=== PATIENT | male | born 1930 | race Caucasian/White ===

== ENCOUNTER → 2016-07-21 | Outpatient (CLI) | payer OTHER ==
[~2016-07-21] MED LIST: ASPI81TA25 PO; CZR50 PO; LPT40 PO; METO50TA7 PO; SPIR50TA2 PO
[2016-07-21 12:19] LABS: BASO % 0.3 %; BASO ABS # 0.02 K/uL (0-0.2); COMPLETE YES; EOS % 6.9 %; HEMATOCRIT 38.1 % (42-52); IG% 0.3 %; LYMPH % 22.5 %; LYMPH ABS # 1.64 K/uL (1.2-3.4); MEAN CELL VOLUME 96.7 fL (80-100); MEAN CORPUSCULAR HEMOGLOBIN 32.2 pg (25-34); MEAN CORPUSCULAR HGB CONC 33.3 g/dl (32-36); MEAN PLATELET VOLUME 10.2 fL (7.4-10.4); MONO % 9.3 %; NEUT % 60.7 %; PLATELET COUNT 151 K/uL (130-400); RED BLOOD COUNT 3.94 M/uL (4.7-6.1); WHITE BLOOD COUNT 7.28 K/uL (4.8-10.8)
[2016-07-21 12:28] LABS: BLOOD UREA NITROGEN 29 mg/dl (7-18); BUN/CREATININE RATIO 20.4 (10-20); CALCIUM 9.4 mg/dl (8.5-10.1); CARBON DIOXIDE 29 mmol/L (21-32); CHLORIDE 106 mmol/L (98-107); GLUCOSE 92 mg/dl (70-99); POTASSIUM 5.1 mmol/L (3.5-5.1); SODIUM 139 mmol/L (136-145)
[2016-07-21 12:46] LABS: ESTIMATED AVERAGE GLUCOSE 131 mg/dl; HA1C FLAG Normal (Normal)
== END | disposition home or self-care (01) ==
LOC: C.LABBFT 10:08
PROVIDERS: ATTEND Internal Medicine
DX: D64.9 Anemia, unspecified (principal); R73.01 Impaired fasting glucose

== ENCOUNTER → 2016-08-17 | Outpatient (CLI) | payer OTHER ==
[2016-08-17 13:07] LABS: BLOOD UREA NITROGEN 40 mg/dl (7-18); BUN/CREATININE RATIO 23.8 (10-20)
[2016-08-17 13:11] LABS: PROSTATE SPECIFIC ANTIGEN 0.157 ng/ml (0.000-4.000)
--- NOTE | 2016-08-24 12:19 | CODING QUERY MEDICAL NECESSITY ---
CQSUPPORTING DIAGNOSIS NEEDED A supporting diagnosis is required for the test/procedure performed on this patient in order for us to be reimbursed by the patient's insurance. Please provide a supporting diagnosis for the following test/procedure listed below next to the test name along with your signature. *If there is no additional diagnosis for this patient that would support the following test/procedure please document that below next to the test/procedure. Test(s)/Procedure(s) that require a supporting diagnosis: DOS 08/17/16 [facility] TEST Provider Signature: Date: Thank you Carolann Sadler Health Information Management Once completed, please kindly fax back to [phone] For questions please call [phone]
== END | disposition home or self-care (01) ==
LOC: C.LABBFT 07:35
PROVIDERS: ATTEND Urology
DX: N39.0 Urinary tract infection, site not specified (principal); C61 Malignant neoplasm of prostate

== ENCOUNTER → 2017-01-28 | Outpatient (CLI) | payer OTHER ==
[2017-01-28 12:21] LABS: BASO % 0.3 %; BASO ABS # 0.02 K/uL (0-0.2); COMPLETE YES; EOS % 7.6 %; HEMATOCRIT 37.3 % (42-52); IG% 0.1 %; LYMPH % 24.9 %; LYMPH ABS # 1.66 K/uL (1.2-3.4); MEAN CELL VOLUME 98.4 fL (80-100); MEAN CORPUSCULAR HEMOGLOBIN 32.2 pg (25-34); MEAN CORPUSCULAR HGB CONC 32.7 g/dl (32-36); MEAN PLATELET VOLUME 10.2 fL (7.4-10.4); MONO % 10.9 %; NEUT % 56.2 %; PLATELET COUNT 149 K/uL (130-400); RED BLOOD COUNT 3.79 M/uL (4.7-6.1); WHITE BLOOD COUNT 6.67 K/uL (4.8-10.8)
[2017-01-28 12:32] LABS: ALT/SGPT 16 U/L (12-78); AST/SGOT 25 U/L (15-37); BLOOD UREA NITROGEN 39 mg/dl (7-18); BUN/CREATININE RATIO 27.5 (10-20); CALCIUM 8.9 mg/dl (8.5-10.1); CARBON DIOXIDE 26 mmol/L (21-32); CHLORIDE 111 mmol/L (98-107); CHOLESTEROL 141 mg/dl (0-200); GLUCOSE 100 mg/dl (70-99); POTASSIUM 4.5 mmol/L (3.5-5.1); SODIUM 142 mmol/L (136-145); TRIGLYCERIDES 75 mg/dl (0-150); VERY LOW DENSITY LIPOPROT CALC 15 mg/dl
[2017-01-28 12:33] LABS: ALKALINE PHOSPHATASE 77 U/L (45-117); CHOLESTEROL/HDL RATIO 2.9; HDL CHOLESTEROL 48 mg/dl; LDL CHOLESTEROL CALCULATED 78 mg/dl
[2017-01-28 12:43] LABS: ESTIMATED AVERAGE GLUCOSE 131 mg/dl; HA1C FLAG Normal (Normal)
== END | disposition home or self-care (01) ==
LOC: C.LABBFT 07:43
PROVIDERS: ATTEND Internal Medicine
DX: N18.3 Chronic kidney disease, stage 3 (moderate) (principal); R73.01 Impaired fasting glucose; E78.5 Hyperlipidemia, unspecified

== ENCOUNTER → 2017-07-26 | Outpatient (CLI) | payer OTHER ==
[~2017-07-26] MED LIST changes: -METO50TA7 PO; +METO50TA8 PO
[2017-07-26 12:29] LABS: BASO % 0.4 %; BASO ABS # 0.03 K/uL (0-0.2); EOS % 6.8 %; EOS ABS # 0.48 K/uL (0-0.5); HEMATOCRIT 38.4 % (42-52); HEMOGLOBIN 12.7 g/dL (14.0-18.0); IG# 0.01 K/uL (0.00-0.02); LYMPH % 23.3 %; LYMPH ABS # 1.65 K/uL (1.2-3.4); MEAN CELL VOLUME 95.3 fL (80-100); MEAN CORPUSCULAR HEMOGLOBIN 31.5 pg (25-34); MEAN CORPUSCULAR HGB CONC 33.1 g/dl (32-36); MEAN PLATELET VOLUME 9.6 fL (7.4-10.4); MONO % 9.7 %; MONO ABS # 0.69 K/uL (0.11-0.59); NEUT % 59.7 %; NEUT ABS # 4.23 K/uL (1.4-6.5); PLATELET COUNT 149 K/uL (130-400); RED CELL DISTRIBUTION WIDTH CV 12.9 % (11.5-14.5); RED CELL DISTRIBUTION WIDTH SD 45.1 fL (36.4-46.3); WHITE BLOOD COUNT 7.09 K/uL (4.8-10.8)
[2017-07-26 12:41] LABS: ALBUMIN 3.6 gm/dl (3.4-5.0); BLOOD UREA NITROGEN 28 mg/dl (7-18); CALCIUM 9.2 mg/dl (8.5-10.1); CARBON DIOXIDE 27 mmol/L (21-32); GLUCOSE 94 mg/dl (70-99); POTASSIUM 4.5 mmol/L (3.5-5.1); SODIUM 139 mmol/L (136-145)
[2017-07-26 12:45] LABS: PHOSPHORUS 3.5 mg/dl (2.5-4.9)
[2017-07-26 12:46] LABS: HEMOGLOBIN A1C 6.5 % (4.5-5.6)
== END | disposition home or self-care (01) ==
LOC: C.LABBFT 09:19
PROVIDERS: ATTEND Internal Medicine
DX: N18.3 Chronic kidney disease, stage 3 (moderate) (principal); D64.9 Anemia, unspecified; R73.01 Impaired fasting glucose; E55.9 Vitamin D deficiency, unspecified; C67.9 Malignant neoplasm of bladder, unspecified; C61 Malignant neoplasm of prostate

== ENCOUNTER 2019-08-09 06:10 | Inpatient (IN) ==
[2019-08-09] MEDS ORDERED: SODIUM CHLORIDE 0.9% 500 ML IV SCH (06:45)
[2019-08-09 06:55] LABS: Hematocrit (blood only) 33.9 % (42-52); Hemoglobin 11.4 g/dL (14.0-18.0); Mean Corpuscular Hemoglobin 31.8 pg (25-34); Mean Corpuscular Hgb Conc 33.6 g/dL (32-36); Mean Corpuscular Volume 94.4 fL (80-100); Mean Platelet Volume 9.1 fL (7.4-10.4); Platelet Count 168 K/uL (130-400); RDW Coefficient of Variation 13.2 % (11.5-14.5); RDW Standard Deviation 45.9 fL (36.4-46.3); Red Blood Count 3.59 M/uL (4.7-6.1); White Blood Count 6.92 K/uL (4.8-10.8)
[2019-08-09 07:06] LABS: Albumin Level 2.5 gm/dl (3.4-5.0); Calcium 8.6 mg/dl (8.5-10.1); Creatinine Clr Calc Pharmacy 28.3 ml/min; Est GFR (African American) 45.7; Est GFR (Non-African American) 39.4; Potassium 4.2 mmol/L (3.5-5.1)
[2019-08-09 07:17] LABS: Albumin Globulin Ratio 0.6 (0.9-2); Bilirubin,Total 0.5 mg/dl (0.2-1); Globulin 4.5 gm/dl (2.5-4.0); Thyroid Stimulating Hormone 1.67 uIu/ml (0.300-4.500); Troponin I 0.04 ng/ml (0-0.045)
--- NOTE | 2019-08-09 07:19 | Emergency Department Note ---
History of Present Illness General Chief Complaint: Shortness of Breath/Dyspnea Stated Complaint: SHORT OF BREATH Time Seen by Provider: 08/09/19 06:34 Source: patient Mode of arrival: EMS Limitations: no limitations History of Present Illness Provider Complaint: shortness of breath Onset (ago): day(s) (Several) Severity: mild Consistency/Duration: + constant Current Pain Intensity: 0 Relieved By: + nothing Exacerbated By: + exertion Context: + recent illness Associated symptoms: + other (Generalized weakness.) Treatment prior to arrival: oxygen HPI Narrative: The patient presents from [facility] with a chief complaint of exertional dyspnea and exertional shortness of breath. He has been at [facility] for the past couple of days for generalized weakness. They found him to be hypoxic on 2 L of oxygen this morning at 82%. The patient was found to be 86% here on room air. He was not using oxygen prior to going to [facility]. The patient states that he has been feeling rundown for a couple of months with no energy. He states that he can only walk for a few steps until he feels fatigued and tired. Related Data Home oxygen amount: none Home Medications Home Medications Medication Instructions Recorded Confirmed Type aspirin 81 mg tablet,delayed 81 mg PO DAILY 04/24/19 08/09/19 History release nitroglycerin 0.4 mg sublingual 0.4 mg SL Q5M PRN #25 tab 05/15/19 08/09/19 Rx tablet atorvastatin 40 mg tablet 40 mg PO DAILY #90 tab 07/25/19 08/09/19 Rx losartan 50 mg tablet 50 mg PO DAILY #90 tab 07/25/19 08/09/19 Rx metoprolol tartrate 50 mg tablet 50 mg PO BID #180 tab 07/25/19 08/09/19 Rx acetaminophen 650 mg PO Q4H PRN 08/09/19 08/09/19 History bisacodyl 10 mg NJ DAILY PRN 08/09/19 08/09/19 History docusate sodium 100 mg PO DAILY 08/09/19 08/09/19 History hydrochlorothiazide 25 mg PO 2XWK 08/09/19 08/09/19 History polyethylene glycol 3350 [Miralax] 17 g PO DAILY PRN 08/09/19 08/09/19 History sennosides-docusate sodium 1 tab-cap PO HS PRN 08/09/19 08/09/19 History [Senokot-S] sodium phosphates 133 ml NJ DAILY PRN 08/09/19 08/09/19 History spironolactone [Aldactone] 25 mg PO 2XWK 08/09/19 08/09/19 History Allergies Allergy/AdvReac Type Severity Reaction Status Date / Time No Known Drug Allergies Allergy Verified 08/04/19 10:35 Past Med/Surg History Medical History Antiplatelet or antithrombotic long-term use CAD (coronary artery disease) Dyslipidemia Surgical History S/P arthroscopy of right knee S/P cholecystectomy S/P cystoscopy Family History Other Heart disease Social History Preferred Language: [place] Communication Ability: Effective Hot Cell Technician Required: No Beliefs That Will Affect Care: None marital status: / Current Living Situation: Rehab current occupational status: retired Other Information That Helps Us Care for You: No Feels Safe at Home: Yes Safety Concerns: Feels Safe At This Time Smoking Status: Former smoker Tobacco Type: cigarettes ; Age Started Using Tobacco: 16 ; Age Quit Using Tobacco: 68 ; packs per day: 1.5 ; Cigarettes Per Day: 30 ; Do You Dip or Chew Tobacco: No ; Smoking End Date: 1995 ; Number of Years Since Quit: 20 ; Second Hand Exposure: No ; Tobacco Cessation Education Requested by Patient: No Hx Alcohol Use: No Hx Substance Use: No Review of Systems A total of 10 systems reviewed and were otherwise negative Physical Exam Vital Signs: Vital Signs - 24 hr 08/09/19 06:39 08/09/19 07:00 08/09/19 08:30 Temperature 36.8 C Temperature Source Oral Pulse Rate 74 Pulse Rate [Apical ] 85 88 Pulse Rhythm [Apic al] Regular Regular Pulse Strength [Ap ical] Normal Normal Respiratory Rate 24 20 20 Respiratory Effort / Characteristics Non-Labored Sponta neous Non-Labored Sponta neous Non-Labored Sponta neous Respiratory Depth Normal Normal Normal Respiratory Patter n Regular Regular Regular Blood Pressure 105/76 Blood Pressure [Le ft Arm] 113/86 116/61 Blood Pressure Jessica n 85 Blood Pressure Jessica n [Left Arm] 95 79 Blood Pressure Pos ition [Left Arm] Lying Sitting Pulse Oximetry 87 L 96 93 Oxygen Delivery Me thod Room Air Nasal Cannula Oxymask Oxygen Flow Rate 4 6 Sepsis Recent Feve r Within 48 Hours Yes Sepsis New/Unexpla ined Change in Men dank Status No Sepsis Action Take n by Nursing Physician Notified Oxygen Flow Rate - Titration 4 Pulse Oximetry Pos t Tiitration 95 08/09/19 09:30 Temperature Temperature Source Pulse Rate Pulse Rate [Apical ] 78 Pulse Rhythm [Apic al] Regular Pulse Strength [Ap ical] Normal Respiratory Rate 20 Respiratory Effort / Characteristics Non-Labored Sponta neous Respiratory Depth Normal Respiratory Patter n Regular Blood Pressure Blood Pressure [Le ft Arm] 100/63 Blood Pressure Jessica n Blood Pressure Jessica n [Left Arm] 75 Blood Pressure Pos ition [Left Arm] Sitting Pulse Oximetry 95 Oxygen Delivery Me thod Oxymask Oxygen Flow Rate 5 Sepsis Recent Feve r Within 48 Hours Sepsis New/Unexpla ined Change in Men dank Status Sepsis Action Take n by Nursing Oxygen Flow Rate - Titration Pulse Oximetry Pos t Tiitration Physical Exam: CONSTITUTIONAL/VITAL SIGNS: Reviewed / noted above. GENERAL: Non-toxic in appearance. INTEGUMENTARY: Warm, dry, and [place]. HEAD: Normocephalic. EYES: without scleral icterus or trauma. ENT/OROPHARYNX: clear and moist. LYMPHADENOPATHY/NECK: Is supple without lymphadenopathy or meningismus. RESPIRATORY: Lungs clear and equal. CARDIOVASCULAR: Regular rate and rhythm. GI/ABDOMEN: Soft and nontender. No organomegaly or pulsatile mass. No rebound or guarding. Normal bowel sounds. EXTREMITIES: Warm and well perfused. BACK: No CVA tenderness. NEUROLOGICAL: Intact without focal deficits. PSYCHIATRIC: normal affect. MUSCULOSKELETAL: Normally developed with good muscle tone. TRIAGE NURSING DOCUMENTATION REVIEWED. Course Administered Medications Ioversol (Optiray 320 125ml) 76 ml IV ONCE PRN PRN Reason: Interaction Checking Stop: 08/13/19 07:43 Last Admin: 08/09/19 07:44 Dose: 76 ml Documented by: [id number] Discontinued Medications Sodium Chloride (Nss) 500 mls @ 999 mls/hr IV .Q31M HUMA Stop: 08/09/19 07:15 Last Admin: 08/09/19 07:00 Dose: 999 mls/hr Documented by: [id number] Cefepime HCl (Maxipime) 2,000 mg in 20 mls @ 5 mls/min IV NOW STA; Protocol Stop: 08/09/19 07:54 Last Admin: 08/09/19 08:33 Dose: 5 mls/min Documented by: [id number] Medical Decision Making Differential Diagnosis Differential includes acute coronary syndrome, myocardial infarction, CVA, TIA, anemia, infection, pneumonia, UTI, pyelonephritis, poor nutrition, dehydration, electrolyte disturbance,hypoglycemia. Medical Records Attestation: I reviewed the patient's medical records. Laboratory Data Attestation: I reviewed the patient's lab results. Result diagrams: 08/09/19 06:30 08/09/19 06:30 Lab Results 08/09/19 08/09/19 Range/Units 06:30 06:30 WBC 6.92 (4.8-10.8) K/uL RBC 3.59 L (4.7-6.1) M/uL Hgb 11.4 L (14.0-18.0) g/dL Hct 33.9 L (42-52) % MCV 94.4 (80-100) fL MCH 31.8 (25-34) pg MCHC 33.6 (32-36) g/dL RDW Std Deviation 45.9 (36.4-46.3) fL RDW Coeff of Shira 13.2 (11.5-14.5) % Plt Count 168 (130-400) K/uL MPV 9.1 (7.4-10.4) fL Immature Gran % (Auto) 0.6 % Neut % (Auto) 74.8 % Lymph % (Auto) 17.8 % [place] % (Auto) 6.4 % Eos % (Auto) 0.4 % Baso % (Auto) 0.0 % Immature Gran # (Auto) 0.04 H (0.00-0.02) K/uL Neut # (Auto) 5.18 (1.4-6.5) K/uL Lymph # (Auto) 1.23 (1.2-3.4) K/uL [place] # (Auto) 0.44 (0.11-0.59) K/uL Eos # (Auto) 0.03 (0-0.5) K/uL Baso # (Auto) 0.00 (0-0.2) K/uL Sodium 137 (136-145) mmol/L Potassium 4.2 (3.5-5.1) mmol/L Chloride 107 (98-107) mmol/L Carbon Dioxide 25 (21-32) mmol/L Anion Gap 5.0 (3-11) BUN 40 H (7-18) mg/dl Creatinine 1.54 H (0.6-1.4) mg/dl Est Cr Clr Drug Dosing 28.3 ml/min Est GFR ( Amer) 45.7 Est GFR (Non-Af Amer) 39.4 BUN/Creatinine Ratio 26.0 H (10-20) Glucose 98 (70-99) mg/dl Calcium 8.6 (8.5-10.1) mg/dl Total Bilirubin 0.5 (0.2-1) mg/dl AST 189 H (15-37) U/L ALT 82 H (12-78) U/L Alkaline Phosphatase 68 (45-117) U/L Total Creatine Kinase 218 (39-308) U/L Troponin I 0.040 (0-0.045) ng/ml Total Protein 7.0 (6.4-8.2) gm/dl Albumin 2.5 L (3.4-5.0) gm/dl Globulin 4.5 H (2.5-4.0) gm/dl Albumin/Globulin Ratio 0.6 L (0.9-2) TSH 1.670 (0.300-4.500) uIu/ml Imaging Data Radiologist's Impression: T ANGIOGRAPHY OF THE CHEST, PULMONARY EMBOLUS PROTOCOL CLINICAL HISTORY: Shortness of breath. COMPARISON STUDY: Chest CT June 06, 2015. Chest radiograph performed earlier today. TECHNIQUE: Following IV administration of 76 mL of Optiray-320, helical axial images of the chest were obtained utilizing the pulmonary embolus protocol. Maximal intensity projections and sagittal and coronal reformats were viewed on an independent 3D workstation. IV contrast was administered without complication. Automated exposure control was utilized for the study. A dose lowering technique was utilized adhering to the principles of ALARA. CT DOSE: 354.16 mGy.cm FINDINGS: No pulmonary emboli are identified. There is mild cardiomegaly. No pericardial effusion is noted. Extensive coronary artery calcification is noted. 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 There is no pneumothorax or pleural effusion. Moderate emphysema is present. Moderate bilateral groundglass opacities are noted, predominantly subpleural in the location. There is no cavitation. Calcified granuloma within the right upper lobe is incidentally noted. A prominent subcarinal lymph node is noted. This is probably benign. Bony thorax and upper abdomen are unremarkable. IMPRESSION: 1. No pulmonary emboli identified. 2. Moderate bilateral groundglass opacities within the lungs, predominantly subpleural in location. These favor a nonspecific infectious/inflammatory process. 3. Emphysema. XR chest 1V portable CLINICAL HISTORY: weakness COMPARISON STUDY: Chest radiograph August 04, 2019. FINDINGS: Incidental note is made of a calcified granuloma within the right upper lobe. There is no pneumothorax or pleural effusion. Lung volumes are mildly diminished. Emphysema is present. Linear bilateral opacities favor atelectasis. There is mild interstitial thickening within the lungs. No lobar consolidation is present. Cardiomediastinal silhouette is stable. IMPRESSION: 1. Interval development of interstitial thickening which may reflect an infectio us process or pulmonary edema. 2. Linear bilateral opacities suggestive of atelectasis. 3. Emphysema. ECG Data Attestation: I personally reviewed and interpreted this ECG as follows: (Per my interpretation there is a normal sinus rhythm at a rate of 73. No ST elevations. No PVCs.) Blood Pressure Blood Pressure Findings: Normal blood pressure MDM Narrative Patient presents with feeling "rundown" for a couple of months and more recently shortness of breath and weakness with exertion. He was found to be hypoxic on 2 L of oxygen at [facility]. His pulse ox was 82% on 2 L. They sent him here for this. He was 86 to 87% on room air here. He was not using oxygen until he went to [facility] couple of days ago. He was sent there for his generalized weakness. He is currently not taking antibiotics. He denies any recent illness. His physical exam was unremarkable. He is in no distress. His lungs were clear. The patient CBC is normal, BUN is 40 and creatinine is 1.54. This is similar to what he was last time. AST is 189, ALT is 82. EKG showed a normal sinus rhythm at a rate of 73 with a normal troponin. TSH was normal. The patient was treated with normal saline 500 cc IV. He is requiring nasal cannula oxygen to maintain sats in the high 80s to low 90s. He was empirically given IV cefepime as a CT scan of the chest suggestive of bilateral pneumonia. Of note, the patient's son called this morning while the patient was in the ED and stated that he (THE SON) just got a phone call this morning stating that he was positive for Covid19. He states that he was living with his dad until he went to [facility] a few days ago. I did speak with the hospitalist, who will see the patient for further inpatient evaluation and care. Covid19 testing was initiated. I did wear and 95 mask and closed with this patient with no additional PPE. Impression & Plan Hypoxia, Weakness Discharge Plan Visit Data Chief Complaint: Shortness of Breath/Dyspnea Stated Complaint: SHORT OF BREATH ED Provider: Tavares Grier Discharge Problem: Hypoxia, Weakness Forms Stand Alone Forms: My [facility] Prescriptions Prescriptions: No Action nitroglycerin 0.4 mg tablet, sublingual 0.4 mg SL Q5M PRN (Reason: chest pain) Qty: 25 RF: 1 aspirin 81 mg tablet,delayed release (DR/EC) 81 mg PO DAILY RF: 0 atorvastatin 40 mg tablet 40 mg PO DAILY Qty: 90 RF: 3 losartan 50 mg tablet 50 mg PO DAILY Qty: 90 RF: 3 metoprolol tartrate 50 mg tablet 50 mg PO BID Qty: 180 RF: 3 docusate sodium 100 mg Capsule 100 mg PO DAILY RF: 0 hydrochlorothiazide 25 mg Tablet 25 mg PO 2XWK RF: 0 spironolactone [Aldactone] 25 mg Tablet 25 mg PO 2XWK RF: 0 acetaminophen 650 mg Tablet Extended Release 650 mg PO Q4H PRN (Reason: pain/fever) RF: 0 bisacodyl 10 mg Suppository 10 mg NJ DAILY PRN (Reason: Constipation) RF: 0 sennosides-docusate sodium [Senokot-S] 8.6-50 mg Tablet 1 tab-cap PO HS PRN (Reason: Constipation) RF: 0 polyethylene glycol 3350 [Miralax] 17 gram Powder In Packet 17 g PO DAILY PRN (Reason: Constipation) RF: 0 sodium phosphates 19-7 gram/118 mL Enema 133 ml NJ DAILY PRN (Reason: Constipation) RF: 0
[2019-08-09 07:21] LABS: Eosinophils # (auto) 0.03 K/uL (0-0.5); Eosinophils % (auto) 0.4 %; Immature Granulocytes # (auto) 0.04 K/uL (0.00-0.02); Immature Granulocytes % (auto) 0.6 %; Lymphocytes # (auto) 1.23 K/uL (1.2-3.4); Lymphocytes % (auto) 17.8 %; Monocytes # (auto) 0.44 K/uL (0.11-0.59); Monocytes % (auto) 6.4 %; Neutrophils # (auto) 5.18 K/uL (1.4-6.5); Neutrophils % (auto) 74.8 %
[2019-08-09] MEDS ORDERED: OPTIRAY 320 125ml IV PRN (07:44)
--- NOTE | 2019-08-09 07:44 | XRay Report ---
XR chest 1V portable CLINICAL HISTORY: weakness COMPARISON STUDY: Chest radiograph August 04, 2019. FINDINGS: Incidental note is made of a calcified granuloma within the right upper lobe. There is no p neumothorax or pleural effusion. Lung volumes are mildly diminished. Emphysema is present. Linear patito ateral opacities favor atelectasis. There is mild interstitial thickening within the lungs. No lobar consolidation is present. Cardiomediastinal silhouette is stable. IMPRESSION: 1. Interval development of interstitial thickening which may reflect an infectious process or pulmona ry edema. 2. Linear bilateral opacities suggestive of atelectasis. 3. Emphysema. ACT 112: Negative or not required by law. Electronically signed by: Sam Farris M.D. 08/09/2019 7:43 AM
[2019-08-09] MEDS ORDERED: CEFEPIME 2,000 MG/20 ML VIAL IV STA (07:51)
--- NOTE | 2019-08-09 08:06 | CT Scan Report ---
CT ANGIOGRAPHY OF THE CHEST, PULMONARY EMBOLUS PROTOCOL CLINICAL HISTORY: Shortness of breath. COMPARISON STUDY: Chest CT June 06, 2015. Chest radiograph performed earlier today. TECHNIQUE: Following IV administration of 76 mL of Optiray-320, helical axial images of the chest wer e obtained utilizing the pulmonary embolus protocol. Maximal intensity projections and sagittal and coronal reformats were viewed on an independent 3D workstation. IV contrast was administered without complication. Automated exposure control was utilized for the study. A dose lowering technique was utilized adhering to the principles of ALARA. CT DOSE: 354.16 mGy.cm FINDINGS: No pulmonary emboli are identified. There is mild cardiomegaly. No pericardial effusion is noted. Extensive coronary artery calcification is noted. 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 Ther e is no pneumothorax or pleural effusion. Moderate emphysema is present. Moderate bilateral groundgla ss opacities are noted, predominantly subpleural in the location. There is no cavitation. Calcified g ranuloma within the right upper lobe is incidentally noted. A prominent subcarinal lymph node is note d. This is probably benign. Bony thorax and upper abdomen are unremarkable. IMPRESSION: 1. No pulmonary emboli identified. 2. Moderate bilateral groundglass opacities within the lungs, predominantly subpleural in location. T hese favor a nonspecific infectious/inflammatory process. 3. Emphysema. ACT 112: Negative or not required by law. Electronically signed by: Sam Farris M.D. 08/09/2019 8:04 AM
[2019-08-09 10:38] LABS: Influenza A virus by PCR Neg for Influ A (Neg); Influenza B virus by PCR Neg for Influ B (Neg)
[2019-08-09] MEDS ORDERED: ACETAMINOPHEN 325 MG TAB PO PRN (11:01)
[2019-08-09] MEDS: SODIUM CHLORIDE 0.9% 1000ML 1,000 ML IV SCH ×2 (11:17→21:59)
[2019-08-09] MEDS: cefTRIAXone SODIUM 1,000 MG in DEXTROSE 5% 50 ML IV SCH (12:35)
--- NOTE | 2019-08-09 12:42 | History & Physical Report ---
Date of Service August 09, 2019 Assessment & Plan (1) Bilateral pneumonia: CT chest with bilateral ground glass opacities suggestive of inflammatory/infectious changes influenza negative, biofire negative COVID 19 sent, place in airborn precautions, negative pressure room NSS at 80cc/hr repeat labs this afternoon for CBC, CMP, LDH, lactic acid, D dimer will cover for possible bacterial infection with Rocephin and Doxycycline (2) Acute respiratory failure with hypoxia: due to pneumonia discussed with him frankly that if this is in fact COVID 19 then there is not much to be done if his respiratory status declines he would not want to be intubated discussed this with him twice as well as his son over the phone, his son agrees with this up to 11L via mask on the floor hopeful that he will not deteriorate further but prognosis is very guarded at this time (3) Dehydration: NSS at 80cc/hr likely stop fluids tomorrow as we do not want to over hydrate his PO intake has been suboptimal (4) Weakness: was at [facility] weakness likely due to infection will hold on PT/OT until we know status of COVID testing (5) Chronic kidney disease, stage 3: Cr appears to be at baseline at 1.5 will repeat tomorrow (6) Type 2 diabetes mellitus without complication: Novolog SS (7) CAD (coronary artery disease): (8) Dyslipidemia: Admission and Anticipated Discharge Date Admission Date: August 09, 2019 History of Present Illness Chief Complaint: I was short of breath Primary Care Provider: Lb Scott MD 89 yo male from [facility] who was sent because he found to be hypoxic this morning in the mid 's on room air. The patient went to [facility] several days ago due to weakness. He was evaluated in the ED at that time and there was no obvious source of infection. He was accepted to [facility]. This morning he was hypoxic, felt short of breath, had a non-productive cough. He has not been eating well or drinking well the past few days. In the ED he was afebrile, he was 87% on room air. Influenza negative, biofire negative. CT of the chest showed bilateral ground glass opacities favoring inflammatory/infectious etiology. The patient's son called into the ED while he was being evaluated to state that he had just received news that he tested positive for COVID 19. The patient lives with his son. I called the son to discuss his situation. He has been sick at home with fever, cough for the past 2-3 weeks. He had no travel and no known exposure history. 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 Since the patient has been living with a confirmed COVID case, testing for COVID was sent from the ED. He was admitted to negative pressure room. Discussed situation with patient and his son. The patient said that if he gets worse he would not want to be intubated. Allergies Allergy/AdvReac Type Severity Reaction Status Date / Time No Known Drug Allergies Allergy Verified 08/04/19 10:35 Home Medications Home Medications Medication Instructions Recorded Confirmed Type aspirin 81 mg tablet,delayed 81 mg PO DAILY 04/24/19 08/09/19 History release nitroglycerin 0.4 mg sublingual 0.4 mg SL Q5M PRN #25 tab 05/15/19 08/09/19 Rx tablet atorvastatin 40 mg tablet 40 mg PO DAILY #90 tab 07/25/19 08/09/19 Rx losartan 50 mg tablet 50 mg PO DAILY #90 tab 07/25/19 08/09/19 Rx metoprolol tartrate 50 mg tablet 50 mg PO BID #180 tab 07/25/19 08/09/19 Rx acetaminophen 650 mg PO Q4H PRN 08/09/19 08/09/19 History bisacodyl 10 mg ND DAILY PRN 08/09/19 08/09/19 History docusate sodium 100 mg PO DAILY 08/09/19 08/09/19 History hydrochlorothiazide 25 mg PO 2XWK 08/09/19 08/09/19 History polyethylene glycol 3350 [Miralax] 17 g PO DAILY PRN 08/09/19 08/09/19 History sennosides-docusate sodium 1 tab-cap PO HS PRN 08/09/19 08/09/19 History [Senokot-S] sodium phosphates 133 ml ND DAILY PRN 08/09/19 08/09/19 History spironolactone [Aldactone] 25 mg PO 2XWK 08/09/19 08/09/19 History Past Med/Surg History Medical History Antiplatelet or antithrombotic long-term use CAD (coronary artery disease) Dyslipidemia Surgical History S/P arthroscopy of right knee S/P cholecystectomy S/P cystoscopy Family History Other Heart disease Social History Preferred Language: Frisian Communication Ability: Effective Dredge Operator Required: No Beliefs That Will Affect Care: None marital status: / Current Living Situation: Rehab current occupational status: retired Other Information That Helps Us Care for You: No Feels Safe at Home: Yes Safety Concerns: Feels Safe At This Time Smoking Status: Former smoker Tobacco Type: cigarettes ; Age Started Using Tobacco: 16 ; Age Quit Using Tobacco: 68 ; packs per day: 1.5 ; Cigarettes Per Day: 30 ; Do You Dip or Chew Tobacco: No ; Smoking End Date: 1995 ; Number of Years Since Quit: 20 ; Second Hand Exposure: No ; Tobacco Cessation Education Requested by Patient: No Hx Alcohol Use: No Hx Substance Use: No Review of Systems Review of Systems: All systems reviewed & are unremarkable except as noted in HPI & below Constitutional: + chills, + fatigue and + weakness; no fever and no sweats Respiratory: + cough, + dyspnea and + dyspnea on exertion; no sputum production Cardiovascular: no chest pain, no palpitations and no edema Gastrointestinal: no abdominal pain, no nausea, no vomiting, no constipation and no diarrhea/loose stools Genitourinary: no dysuria, no difficulty urinating and no urinary frequency Physical Exam Constitutional: WD/WN, vitals as above + in distress (mild) Eyes: PERRL, conjunctivae normal, anicteric sclerae ENMT: external ear and nose normal, oropharynx normal (dry oral membranes) Neck: trachea midline, no thyromegaly Respiratory: + respiratory distress and + labored breathing Auscultation: + diminished lung sounds; no wheezes Cardiovascular: RRR, no murmur, no edema Gastrointestinal (Abdomen): normal bowel sounds, soft, nontender, no hepatosplenomegaly Musculoskeletal: no cyanosis or clubbing, extremities motor strength 5/5 Skin: no rashes, warm and dry Neurologic: patellar DTR's 2+ bilat, sensation intact and PERRL, EOMI, accommodation nl, no face palsy, no dysarthria Psychiatric: A+Ox3, euthymic affect Lymphatic: no cervical or axillary lymphadenopathy Results & Data Results & Data ([facility]) Vital Signs (Past 12 Hours) Vital Signs Temp Pulse Pulse Pulse Resp BP BP 08/09/19 11:15 36.9 C 78 16 117/71 08/09/19 10:20 81 20 104/59 L 08/09/19 09:30 78 20 100/63 08/09/19 08:30 88 20 116/61 08/09/19 07:00 85 20 113/86 08/09/19 06:39 36.8 C 74 24 105/76 Pulse Ox 08/09/19 11:15 08/09/19 10:20 99 08/09/19 09:30 95 08/09/19 08:30 93 08/09/19 07:00 96 08/09/19 06:39 87 L Laboratory Results Laboratory Results - last 24 hr 08/09/19 08/09/19 08/09/19 06:30 06:30 08:42 WBC 6.92 RBC 3.59 L Hgb 11.4 L Hct 33.9 L MCV 94.4 MCH 31.8 MCHC 33.6 RDW Std Deviation 45.9 RDW Coeff of Shira 13.2 Plt Count 168 MPV 9.1 Immature Gran % (Auto) 0.6 Neut % (Auto) 74.8 Lymph % (Auto) 17.8 [place] % (Auto) 6.4 Eos % (Auto) 0.4 Baso % (Auto) 0.0 Immature Gran # (Auto) 0.04 H Neut # (Auto) 5.18 Lymph # (Auto) 1.23 [place] # (Auto) 0.44 Eos # (Auto) 0.03 Baso # (Auto) 0.00 Sodium 137 Potassium 4.2 Chloride 107 Carbon Dioxide 25 Anion Gap 5.0 BUN 40 H Creatinine 1.54 H Est Cr Clr Drug Dosing 28.3 Est GFR ( Amer) 45.7 Est GFR (Non-Af Amer) 39.4 BUN/Creatinine Ratio 26.0 H Glucose 98 Calcium 8.6 Total Bilirubin 0.5 AST 189 H ALT 82 H Alkaline Phosphatase 68 Total Creatine Kinase 218 Troponin I 0.040 Total Protein 7.0 Albumin 2.5 L Globulin 4.5 H Albumin/Globulin Ratio 0.6 L TSH 1.670 Urine Color Urine Appearance Urine pH Ur Specific [place] Urine Protein Urine Glucose (UA) Urine Ketones Urine Blood Urine Nitrite Urine Bilirubin Urine Urobilinogen Ur Leukocyte Esterase Coronavirus (PCR) Pending COVID-19 Pt Symptomatic Pending COVID-19 Source Pending Influenza Type A (PCR) Influenza Type B (PCR) SARS Virus RNA (PCR) Pending SARS-CoV-2 RNA (RT-PCR) Pending 08/09/19 08/09/19 09:44 16:00 WBC RBC Hgb Hct MCV MCH MCHC RDW Std Deviation RDW Coeff of Shira Plt Count MPV Immature Gran % (Auto) Neut % (Auto) Lymph % (Auto) [place] % (Auto) Eos % (Auto) Baso % (Auto) Immature Gran # (Auto) Neut # (Auto) Lymph # (Auto) [place] # (Auto) Eos # (Auto) Baso # (Auto) Sodium Potassium Chloride Carbon Dioxide Anion Gap BUN Creatinine Est Cr Clr Drug Dosing Est GFR ( Amer) Est GFR (Non-Af Amer) BUN/Creatinine Ratio Glucose Calcium Total Bilirubin AST ALT Alkaline Phosphatase Total Creatine Kinase Troponin I Total Protein Albumin Globulin Albumin/Globulin Ratio TSH Urine Color Pending Urine Appearance Pending Urine pH Pending Ur Specific [place] Pending Urine Protein Pending Urine Glucose (UA) Pending Urine Ketones Pending Urine Blood Pending Urine Nitrite Pending Urine Bilirubin Pending Urine Urobilinogen Pending Ur Leukocyte Esterase Pending Coronavirus (PCR) COVID-19 Pt Symptomatic COVID-19 Source Influenza Type A (PCR) Neg for Influ A Influenza Type B (PCR) Neg for Influ B SARS Virus RNA (PCR) SARS-CoV-2 RNA (RT-PCR) Diagnostic Findings CT chest IMPRESSION: 1. No pulmonary emboli identified. 2. Moderate bilateral groundglass opacities within the lungs, predominantly subpleural in location. These favor a nonspecific infectious/inflammatory process. 3. Emphysema. Medications Administered Current Inpatient Medications Acetaminophen (Tylenol) 650 mg PO Q4H PRN PRN Reason: pain/fever Stop: 09/08/19 11:00 Heparin Sodium (Porcine) (Heparin Sodium (Porcine)) 5,000 units SQ Q8 HUMA Stop: 09/08/19 13:59 Last Admin: 08/09/19 13:46 Dose: 5,000 units Documented by: Sodium Chloride (Nss 1000ml) 1,000 mls @ 80 mls/hr IV .[id number] HUMA Stop: 09/08/19 11:00 Last Admin: 08/09/19 11:17 Dose: 80 mls/hr Documented by: Ceftriaxone Sodium 1,000 mg/ (Dextrose) 50 mls @ 100 mls/hr IV Q24H HUMA Stop: 08/16/19 11:00 Last Infusion: 08/09/19 13:48 Dose: Infused Documented by: Doxycycline Hyclate 100 mg/ (Dextrose) 110 mls @ 50 mls/hr IV Q12H HUMA Stop: 08/16/19 20:59 Last Infusion: 08/09/19 16:27 Dose: Infused Documented by: Ioversol (Optiray 320 125ml) 76 ml IV ONCE PRN PRN Reason: Interaction Checking Stop: 08/13/19 07:43 Last Admin: 08/09/19 07:44 Dose: 76 ml Documented by: Ondansetron HCl (Zofran) 4 mg IV Q6H PRN PRN Reason: Nausea Stop: 09/08/19 11:00 Code Status & VTE Plan Code Status DNR VTE Prophylaxis Plan VTE Prophylaxis will be ordered: Yes PG Care Time/CCT Total # of Minutes Spent Total Time Spent with Patient: Total time spent is greater than 50% in coordination of care (as documented) at patient's floor/unit and/or counseling patient: Coding Level of Care Code 57469 Initial Inpt Care Lvl 3 Diagnoses Bilateral pneumonia J18.9 Acute respiratory failure with hypoxia J96.01 Dehydration E86.0 Weakness R53.1 Chronic kidney disease, stage 3 N18.3 Type 2 diabetes mellitus without complication E11.9 CAD (coronary artery disease) I25.10 Dyslipidemia E78.5
--- NOTE | 2019-08-09 13:08 | Electrocardiogram Report ---
Test Reason : Blood Pressure : / mmHG Vent. Rate : 073 BPM Atrial Rate : 073 BPM P-R Int : 182 ms QRS Dur : 068 ms QT Int : 376 ms P-R-T Axes : 103 025 047 degrees QTc Int : 414 ms Poor data quality, interpretation may be adversely affected Normal sinus rhythm Nonspecific ST abnormality Abnormal ECG When compared with ECG of 04-AUG-2019 09:26, No significant change was found Confirmed by Harpreet Son ([id number]) on 08/09/2019 1:07:38 PM Referred By: REFERRED SELF Confirmed By:Harpreet Son
[2019-08-09] MEDS: HEPARIN SOD 5,000 UNIT/0.5 ML VIAL SQ SCH ×2 (13:46→21:53)
[2019-08-09] MEDS: DOXYCYCLINE HYCLATE 100 MG in DEXTROSE 5% 100 ML IV SCH (14:03)
[2019-08-09 16:59] LABS: Appearance Urine Clear (Clear); Bacteria Urine Automated Negative (Negative); Bilirubin Urine Negative (Negative); Blood Urine 2+ (Negative); Color Urine Yellow; Epithelial Cell Urine Auto >30 /lpf (0-5); Glucose Urine UA Negative (Negative); Ketones Urine Negative (Negative); Leukocyte Esterase Urine Negative (Negative); Nitrite Urine Negative (Negative); Protein Urine 2+ (Negative); Specific Gravity Urine 1.039 (1.000-1.030); Urobilinogen Urine Negative (Negative)
[2019-08-09 17:24] LABS: Hematocrit (blood only) 30.9 % (42-52); Hemoglobin 10.4 g/dL (14.0-18.0); Mean Corpuscular Hemoglobin 31.7 pg (25-34); Mean Corpuscular Hgb Conc 33.7 g/dL (32-36); Mean Corpuscular Volume 94.2 fL (80-100); Mean Platelet Volume 8.8 fL (7.4-10.4); Platelet Count 152 K/uL (130-400); RDW Coefficient of Variation 13.2 % (11.5-14.5); RDW Standard Deviation 45.2 fL (36.4-46.3); Red Blood Count 3.28 M/uL (4.7-6.1); White Blood Count 6.87 K/uL (4.8-10.8)
[2019-08-09 17:41] LABS: Albumin Level 2.1 gm/dl (3.4-5.0); BUN Creatinine Ratio 26.8 (10-20); Calcium 7.8 mg/dl (8.5-10.1); Est GFR (African American) 61.1; Est GFR (Non-African American) 52.8; Potassium 4.4 mmol/L (3.5-5.1)
[2019-08-09 17:44] LABS: Albumin Globulin Ratio 0.5 (0.9-2); Bilirubin,Total 0.3 mg/dl (0.2-1); C Reactive Protein 2.49 mg/dl (0-0.29); Globulin 4.1 gm/dl (2.5-4.0); Total Protein 6.2 gm/dl (6.4-8.2)
[2019-08-09 17:46] LABS: Eosinophils # (auto) 0.02 K/uL (0-0.5); Eosinophils % (auto) 0.3 %; Immature Granulocytes # (auto) 0.03 K/uL (0.00-0.02); Immature Granulocytes % (auto) 0.4 %; Lymphocytes # (auto) 0.92 K/uL (1.2-3.4); Lymphocytes % (auto) 13.4 %; Monocytes # (auto) 0.45 K/uL (0.11-0.59); Monocytes % (auto) 6.6 %; Neutrophils # (auto) 5.45 K/uL (1.4-6.5); Neutrophils % (auto) 79.3 %
[2019-08-09 17:49] LABS: D Dimer 1130 ug/L FEU (0-500)
[2019-08-10] MEDS: DOXYCYCLINE HYCLATE 100 MG in DEXTROSE 5% 100 ML IV SCH ×2 (00:33→14:57)
[2019-08-10] MEDS: HEPARIN SOD 5,000 UNIT/0.5 ML VIAL SQ SCH ×4 (06:13→22:52)
[2019-08-10] MEDS: cefTRIAXone SODIUM 1,000 MG in DEXTROSE 5% 50 ML IV SCH (14:01)
--- NOTE | 2019-08-10 14:37 | Hospitalist Progress Note ---
Date of Service August 10, 2019 Assessment & Plan (1) Bilateral pneumonia: CT chest with bilateral ground glass opacities suggestive of inflammatory/infectious changes influenza negative, biofire negative possible COVID 19 infection, [address] in airborne precautions, negative pressure room no further fluids will cover for possible bacterial infection with Rocephin and Doxycycline should have answer on COVID tomorrow (2) Acute respiratory failure with hypoxia: due to pneumonia discussed with him frankly that if this is in fact COVID 19 then there is not much to be done if his respiratory status declines he would not want to be intubated discussed this with him twice as well as his son over the phone, his son agrees with this patient stable the past 24 hours, still on 11L via mask but not in distress hopeful that he will plateau and then slowly improve (3) Dehydration: NSS at 80cc/hr stop fluids today as we do not want to over hydrate his PO intake has been suboptimal (4) Weakness: was at [facility] weakness likely due to infection will hold on PT/OT until we know status of COVID testing (5) Chronic kidney disease, stage 3: Cr is at baseline, will follow (6) Type 2 diabetes mellitus without complication: Novolog SS (7) CAD (coronary artery disease): (8) Dyslipidemia: Admission and Anticipated Discharge Date Admission Date: August 09, 2019 Subjective patient doing okay this morning, certainly not declining had a low grade fever over night, nothing since that time no cough, shortness of breath is okay as long as he is not doing much has some hematuria after carbajal placed last night, no suprapubic pain reviewed labs, D dimer and LDH elevated, lymphopenic called to discuss with infection control, should have a result on COVID tomorrow patient is eating okay, gets full quickly, he is trying to drink more fluids IV fluids stopped to prevent him from getting overloaded called his son to provide him with an update Review of Systems Review of Systems: All systems reviewed & are unremarkable except as noted in HPI & below Constitutional: + fever, + body aches, + fatigue, + malaise and + weakness; no chills and no sweats Respiratory: + dyspnea and + dyspnea on exertion; no cough, no sputum production and no wheezing Cardiovascular: no chest pain, no palpitations and no edema Gastrointestinal: no abdominal pain, no nausea, no vomiting, no constipation and no diarrhea/loose stools Genitourinary: + hematuria (carbajal in place) Physical Exam Constitutional: WD/WN, vitals as above + ill appearing; no acute distress Eyes: PERRL, conjunctivae normal, anicteric sclerae ENMT: external ear and nose normal, oropharynx normal (dry oral membranes) Neck: trachea midline, no thyromegaly Respiratory: + labored breathing; no respiratory distress Auscultation: + diminished lung sounds; no wheezes Cardiovascular: RRR, no murmur, no edema Gastrointestinal (Abdomen): normal bowel sounds, soft, nontender, no hepatosplenomegaly Musculoskeletal: no cyanosis or clubbing, extremities motor strength 5/5 Skin: no rashes, warm and dry Neurologic: patellar DTR's 2+ bilat, sensation intact and PERRL, EOMI, accommodation nl, no face palsy, no dysarthria Psychiatric: A+Ox3, euthymic affect Lymphatic: no cervical or axillary lymphadenopathy Results & Data Results & Data ([facility]) Vital Signs (Past 12 Hours) Vital Signs Temp Pulse Resp BP BP Pulse Ox 08/10/19 08:22 37.0 C 82 18 120/67 92 08/10/19 03:51 37.2 C 81 16 110/65 94 Laboratory Results Laboratory Results - last 24 hr 08/09/19 08/09/19 08/09/19 16:00 17:14 17:14 WBC 6.87 RBC 3.28 L Hgb 10.4 L Hct 30.9 L MCV 94.2 MCH 31.7 MCHC 33.7 RDW Std Deviation 45.2 RDW Coeff of Shira 13.2 Plt Count 152 MPV 8.8 Immature Gran % (Auto) 0.4 Neut % (Auto) 79.3 Lymph % (Auto) 13.4 [place] % (Auto) 6.6 Eos % (Auto) 0.3 Baso % (Auto) 0.0 Immature Gran # (Auto) 0.03 H Neut # (Auto) 5.45 Lymph # (Auto) 0.92 L [place] # (Auto) 0.45 Eos # (Auto) 0.02 Baso # (Auto) 0.00 D-Dimer Sodium 138 Potassium 4.4 Chloride 112 H Carbon Dioxide 21 Anion Gap 5.0 BUN 32 H Creatinine 1.21 D Est Cr Clr Drug Dosing 36.0 Est GFR ( Amer) 61.1 Est GFR (Non-Af Amer) 52.8 BUN/Creatinine Ratio 26.8 H Glucose 106 H Lactate Calcium 7.8 L Total Bilirubin 0.3 AST 176 H ALT 74 Alkaline Phosphatase 64 Lactate Dehydrogenase C-Reactive Protein 2.49 H Total Protein 6.2 L Albumin 2.1 L Globulin 4.1 H Albumin/Globulin Ratio 0.5 L Urine Color Yellow Urine Appearance Clear Urine pH 5.0 Ur Specific [place] 1.039 H Urine Protein 2+ H Urine Glucose (UA) Negative Urine Ketones Negative Urine Blood 2+ H Urine Nitrite Negative Urine Bilirubin Negative Urine Urobilinogen Negative Ur Leukocyte Esterase Negative Urine WBC (Auto) 1-5 Urine RBC (Auto) 10-30 H U Hyaline Cast (Auto) 1-5 U Epithel Cells (Auto) >30 H Urine Bacteria (Auto) Negative Ur Renal Epithelial Cell Not Reportable 08/09/19 08/09/19 08/09/19 17:14 17:14 17:14 WBC RBC Hgb Hct MCV MCH MCHC RDW Std Deviation RDW Coeff of Shira Plt Count MPV Immature Gran % (Auto) Neut % (Auto) Lymph % (Auto) [place] % (Auto) Eos % (Auto) Baso % (Auto) Immature Gran # (Auto) Neut # (Auto) Lymph # (Auto) [place] # (Auto) Eos # (Auto) Baso # (Auto) D-Dimer 1130 H* Sodium Potassium Chloride Carbon Dioxide Anion Gap BUN Creatinine Est Cr Clr Drug Dosing Est GFR ( Amer) Est GFR (Non-Af Amer) BUN/Creatinine Ratio Glucose Lactate 0.9 Calcium Total Bilirubin AST ALT Alkaline Phosphatase Lactate Dehydrogenase 482 H C-Reactive Protein Total Protein Albumin Globulin Albumin/Globulin Ratio Urine Color Urine Appearance Urine pH Ur Specific [place] Urine Protein Urine Glucose (UA) Urine Ketones Urine Blood Urine Nitrite Urine Bilirubin Urine Urobilinogen Ur Leukocyte Esterase Urine WBC (Auto) Urine RBC (Auto) U Hyaline Cast (Auto) U Epithel Cells (Auto) Urine Bacteria (Auto) Ur Renal Epithelial Cell Medications Administered Current Inpatient Medications Acetaminophen (Tylenol) 650 mg PO Q4H PRN PRN Reason: pain/fever Stop: 09/08/19 11:00 Heparin Sodium (Porcine) (Heparin Sodium (Porcine)) 5,000 units SQ Q8 HUMA Stop: 09/08/19 13:59 Last Admin: 08/10/19 06:50 Dose: Not Given Documented by: Ceftriaxone Sodium 1,000 mg/ (Dextrose) 50 mls @ 100 mls/hr IV Q24H HUMA Stop: 08/16/19 11:00 Last Admin: 08/10/19 14:01 Dose: 100 mls/hr Documented by: Doxycycline Hyclate 100 mg/ (Dextrose) 110 mls @ 50 mls/hr IV Q12H HUMA Stop: 08/16/19 20:59 Last Infusion: 08/10/19 03:51 Dose: Infused Documented by: Ioversol (Optiray 320 125ml) 76 ml IV ONCE PRN PRN Reason: Interaction Checking Stop: 08/13/19 07:43 Last Admin: 08/09/19 07:44 Dose: 76 ml Documented by: Ondansetron HCl (Zofran) 4 mg IV Q6H PRN PRN Reason: Nausea Stop: 09/08/19 11:00 PG Care Time/CCT Total # of Minutes Spent Total Time Spent: 40 Total Time Spent with Patient: Total time spent is greater than 50% in coordination of care (as documented) at patient's floor/unit and/or counseling patient: Coding Level of Care Code 82045 Subseq Hosp Care Lvl 3 Diagnoses Bilateral pneumonia J18.9 Acute respiratory failure with hypoxia J96.01 Dehydration E86.0 Weakness R53.1 Chronic kidney disease, stage 3 N18.3 Type 2 diabetes mellitus without complication E11.9 CAD (coronary artery disease) I25.10 Dyslipidemia E78.5
[2019-08-11] MEDS: DOXYCYCLINE HYCLATE 100 MG in DEXTROSE 5% 100 ML IV SCH ×2 (00:39→12:29)
[2019-08-11 03:51] LABS: COVID-19 Patient Symptomatic? YES; PAN-SARS Coronavirus RNA POSITIVE (NEGATIVE); SARS CoV2 RNA (COVID-19) POSITIVE (NEGATIVE); SARS Coronavirus RNA Source NASOPHARYNGEAL
[2019-08-11] MEDS: HEPARIN SOD 5,000 UNIT/0.5 ML VIAL SQ SCH ×3 (07:24→22:17)
[2019-08-11 08:46] LABS: Hematocrit (blood only) 33.9 % (42-52); Hemoglobin 11.1 g/dL (14.0-18.0); Mean Corpuscular Hemoglobin 30.8 pg (25-34); Mean Corpuscular Hgb Conc 32.7 g/dL (32-36); Mean Corpuscular Volume 94.2 fL (80-100); Mean Platelet Volume 9.2 fL (7.4-10.4); Platelet Count 152 K/uL (130-400); RDW Coefficient of Variation 13.2 % (11.5-14.5); White Blood Count 7.68 K/uL (4.8-10.8)
[2019-08-11 09:15] LABS: BUN Creatinine Ratio 22.1 (10-20); Calcium 8.5 mg/dl (8.5-10.1); Creatinine Clr Calc Pharmacy 38.2 ml/min; Est GFR (African American) 65.7; Est GFR (Non-African American) 56.7; Potassium 4.3 mmol/L (3.5-5.1)
[2019-08-11 09:17] LABS: Albumin Globulin Ratio 0.4 (0.9-2); Bilirubin,Total 0.5 mg/dl (0.2-1); Globulin 4.6 gm/dl (2.5-4.0); Total Protein 6.6 gm/dl (6.4-8.2)
[2019-08-11 09:18] LABS: Basophils # (auto) 0.01 K/uL (0-0.2); Basophils % (auto) 0.1 %; Eosinophils % (auto) 1.3 %; Immature Granulocytes # (auto) 0.02 K/uL (0.00-0.02); Immature Granulocytes % (auto) 0.3 %; Monocytes # (auto) 0.41 K/uL (0.11-0.59); Monocytes % (auto) 5.3 %; Neutrophils # (auto) 6.14 K/uL (1.4-6.5); RBC Morphology Unremarkable
--- NOTE | 2019-08-11 11:32 | Hospitalist Progress Note ---
Date of Service August 11, 2019 Assessment & Plan (1) COVID-19 virus infection: positive PCR test, results back on 08/10 notified [place] dept of [facility], notified patient and his son over the phone continue negative pressure room and airborne/contact precautions he is stable compared to yesterday, still on 11L via mask but not in distress as long as he lays still he is drinking more fluids today no fever, minimal cough, renal function intact on labs today (2) Bilateral pneumonia: CT chest with bilateral ground glass opacities suggestive of inflammatory/infectious changes influenza negative, biofire negative positive for COVID 19 infection, place in airborne precautions, negative pressure room no further fluids as want to keep lungs dry will cover for possible bacterial infection with Rocephin and Doxycycline x 5 days then stop, last day would be 08/12 (3) Acute respiratory failure with hypoxia: due to pneumonia, COVID 19 if his respiratory status declines he would not want to be intubated discussed this with him twice as well as his son over the phone, his son agrees with this patient stable the past 48 hours, still on 11L via mask but not in distress hopeful that he will plateau and then slowly improve (4) Dehydration: NSS at 80cc/hr initially stop fluids 08/09 as we do not want to over hydrate his PO intake is improving (5) Weakness: was at [facility] weakness likely due to infection will hold on PT/OT since we need to preserve PPE (6) Chronic kidney disease, stage 3: Cr is at baseline today, electrolytes stable (7) Type 2 diabetes mellitus without complication: Novolog SS (8) CAD (coronary artery disease): (9) Dyslipidemia: Admission and Anticipated Discharge Date Admission Date: August 09, 2019 Subjective test positive for COVID 19 discussed with patient and his son over the phone he is doing okay, no distress, breathing stable as long as he does not move around no fevers for 24 hours, renal function stable encouraged him to eat and drink what he can discussed with nurses, they will notify me if his breathing deteriorates Review of Systems Review of Systems: All systems reviewed & are unremarkable except as noted in HPI & below Constitutional: + fatigue and + weakness; no fever, no chills and no sweats Respiratory: + cough, + dyspnea and + dyspnea on exertion; no sputum production and no wheezing Cardiovascular: no chest pain and no edema Gastrointestinal: no abdominal pain, no nausea, no vomiting, no constipation and no diarrhea/loose stools Physical Exam Constitutional: WD/WN, vitals as above + ill appearing; no acute distress Eyes: PERRL, conjunctivae normal, anicteric sclerae ENMT: external ear and nose normal, oropharynx normal (dry oral membranes) Neck: trachea midline, no thyromegaly Respiratory: + labored breathing; no respiratory distress Auscultation: + diminished lung sounds; no wheezes Cardiovascular: RRR, no murmur, no edema Gastrointestinal (Abdomen): normal bowel sounds, soft, nontender, no hepatosplenomegaly Musculoskeletal: no cyanosis or clubbing, extremities motor strength 5/5 Skin: no rashes, warm and dry Neurologic: patellar DTR's 2+ bilat, sensation intact and PERRL, EOMI, accommodation nl, no face palsy, no dysarthria Psychiatric: A+Ox3, euthymic affect Lymphatic: no cervical or axillary lymphadenopathy Results & Data Results & Data ([facility]) Vital Signs (Past 12 Hours) Vital Signs Temp Pulse Resp BP Pulse Ox 08/11/19 10:24 92 08/11/19 08:32 36.8 C 88 22 112/71 97 08/11/19 06:52 92 08/11/19 06:26 87 L 08/11/19 06:24 87 L 08/11/19 06:21 86 L 08/11/19 00:33 36.8 C 89 24 107/69 91 Laboratory Results Laboratory Results - last 24 hr 08/09/19 08/11/19 08/11/19 08:42 08:33 08:33 WBC 7.68 RBC 3.60 L Hgb 11.1 L Hct 33.9 L MCV 94.2 MCH 30.8 MCHC 32.7 RDW Std Deviation 46.0 RDW Coeff of Shira 13.2 Plt Count 152 MPV 9.2 Immature Gran % (Auto) 0.3 Neut % (Auto) 80.0 Lymph % (Auto) 13.0 [place] % (Auto) 5.3 Eos % (Auto) 1.3 Baso % (Auto) 0.1 Immature Gran # (Auto) 0.02 Neut # (Auto) 6.14 Lymph # (Auto) 1.00 L [place] # (Auto) 0.41 Eos # (Auto) 0.10 Baso # (Auto) 0.01 RBC Morphology Unremarkable Sodium 138 Potassium 4.3 Chloride 111 H Carbon Dioxide 20 L Anion Gap 7.0 BUN 25 H Creatinine 1.14 Est Cr Clr Drug Dosing 38.2 Est GFR ( Amer) 65.7 Est GFR (Non-Af Amer) 56.7 BUN/Creatinine Ratio 22.1 H Glucose 102 H Calcium 8.5 Total Bilirubin 0.5 AST 172 H ALT 81 H Alkaline Phosphatase 76 Lactate Dehydrogenase Total Protein 6.6 Albumin 2.0 L Globulin 4.6 H Albumin/Globulin Ratio 0.4 L Coronavirus (PCR) DETECTED A COVID-19 Pt Symptomatic YES COVID-19 Source NASOPHARYNGEAL SARS Virus RNA (PCR) POSITIVE A* SARS-CoV-2 RNA (RT-PCR) POSITIVE A* 08/11/19 08:33 WBC RBC Hgb Hct MCV MCH MCHC RDW Std Deviation RDW Coeff of Shira Plt Count MPV Immature Gran % (Auto) Neut % (Auto) Lymph % (Auto) [place] % (Auto) Eos % (Auto) Baso % (Auto) Immature Gran # (Auto) Neut # (Auto) Lymph # (Auto) Cook # (Auto) Eos # (Auto) Baso # (Auto) RBC Morphology Sodium Potassium Chloride Carbon Dioxide Anion Gap BUN Creatinine Est Cr Clr Drug Dosing Est GFR ( Amer) Est GFR (Non-Af Amer) BUN/Creatinine Ratio Glucose Calcium Total Bilirubin AST ALT Alkaline Phosphatase Lactate Dehydrogenase 474 H Total Protein Albumin Globulin Albumin/Globulin Ratio Coronavirus (PCR) COVID-19 Pt Symptomatic COVID-19 Source SARS Virus RNA (PCR) SARS-CoV-2 RNA (RT-PCR) Medications Administered Current Inpatient Medications Acetaminophen (Tylenol) 650 mg PO Q4H PRN PRN Reason: pain/fever Stop: 09/08/19 11:00 Heparin Sodium (Porcine) (Heparin Sodium (Porcine)) 5,000 units SQ Q8 HUMA Stop: 09/08/19 13:59 Last Admin: 08/11/19 07:24 Dose: Not Given Documented by: Ceftriaxone Sodium 1,000 mg/ (Dextrose) 50 mls @ 100 mls/hr IV Q24H HUMA Stop: 08/16/19 11:00 Last Infusion: 08/10/19 14:57 Dose: Infused Documented by: Doxycycline Hyclate 100 mg/ (Dextrose) 110 mls @ 50 mls/hr IV Q12H HUMA Stop: 08/16/19 20:59 Last Infusion: 08/11/19 02:51 Dose: Infused Documented by: Ioversol (Optiray 320 125ml) 76 ml IV ONCE PRN PRN Reason: Interaction Checking Stop: 08/13/19 07:43 Last Admin: 08/09/19 07:44 Dose: 76 ml Documented by: Ondansetron HCl (Zofran) 4 mg IV Q6H PRN PRN Reason: Nausea Stop: 09/08/19 11:00 PG Care Time/CCT Total # of Minutes Spent Total Time Spent with Patient: Total time spent is greater than 50% in coordination of care (as documented) at patient's floor/unit and/or counseling patient: Coding Level of Care Code 10621 Subseq Hosp Care Lvl 3 Diagnoses COVID-19 virus infection U07.1 Bilateral pneumonia J18.9 Acute respiratory failure with hypoxia J96.01 Dehydration E86.0 Weakness R53.1 Chronic kidney disease, stage 3 N18.3 Type 2 diabetes mellitus without complication E11.9 CAD (coronary artery disease) I25.10 Dyslipidemia E78.5
[2019-08-11] MEDS: cefTRIAXone SODIUM 1,000 MG in DEXTROSE 5% 50 ML IV SCH (12:11)
[2019-08-12] MEDS: DOXYCYCLINE HYCLATE 100 MG in DEXTROSE 5% 100 ML IV SCH ×2 (01:06→12:28)
[2019-08-12] MEDS: HEPARIN SOD 5,000 UNIT/0.5 ML VIAL SQ SCH ×3 (05:48→21:30)
[2019-08-12] MEDS: cefTRIAXone SODIUM 1,000 MG in DEXTROSE 5% 50 ML IV SCH (12:06)
--- NOTE | 2019-08-12 14:41 | Hospitalist Progress Note ---
Date of Service August 12, 2019 Assessment & Plan (1) COVID-19 virus infection: positive PCR test, results back on 08/10 notified [place] dept of [place], notified patient and his son over the phone continue negative pressure room and airborne/contact precautions he has been stable for three days, requiring 11L but no distress gets very dyspneic if he tries to move at all no cough, no fever, renal function intact on 08/10 he is drinking more fluids today stop Ceftriaxone and Doxycycline as we are not really treating a bacterial pneumonia (2) Bilateral pneumonia: CT chest with bilateral ground glass opacities suggestive of inflammatory/infectious changes influenza negative, biofire negative positive for COVID 19 infection, place in airborne precautions, negative pressure room no further fluids as want to keep lungs dry stop Rocephin and Doxycycline today, no evidence of bacterial infection (3) Acute respiratory failure with hypoxia: due to pneumonia, COVID 19 if his respiratory status declines he would not want to be intubated discussed this with him twice as well as his son over the phone, his son agrees with this patient stable the past 72 hours, still on 11L via mask but not in distress hopeful that he will plateau and then slowly improve will likely take the next week to recover (4) Dehydration: NSS at 80cc/hr initially stop fluids 08/09 as we do not want to over hydrate his PO intake is improving, making clear urine via carbajal (5) Weakness: was at [facility] weakness likely due to infection will hold on PT/OT since we need to preserve PPE certainly he will need rehab after hospitalization getting him to a facility will be extremely difficult given his COVID 19 status will need to discuss with infection control, case management any process we need to complete to prove he is not contagious would anticipate a week at minimum if we go by 14 days from symptom onset then it would be 08/22 as he was admitted on 08/08 with hypoxia (6) Chronic kidney disease, stage 3: Cr is at baseline 08/10, electrolytes stable (7) Type 2 diabetes mellitus without complication: Novolog SS (8) CAD (coronary artery disease): (9) Dyslipidemia: Admission and Anticipated Discharge Date Admission Date: August 09, 2019 Anticipated date of discharge: 08/20/19 Subjective patient breathing easier, no distress stable on 11L, have not been able to titrate down further no labs today as they were stable yesterday will update his son over the phone patient is eating better, drinking more per RN his urine is clear in the carbajal, had some blood after placing it, likely from prostate trauma he asked how long he will be in the hospital honestly, told him that I am not sure, it will be difficult to get him accepted to rehab with his COVID 19 diagnosis likely here at least another week, likely two weeks we will need to discuss with infection control about how long he needs to be on isolation Review of Systems Review of Systems: All systems reviewed & are unremarkable except as noted in HPI & below Constitutional: + fatigue and + weakness; no fever and no chills Respiratory: + dyspnea and + dyspnea on exertion; no cough, no hemoptysis, no sputum production and no wheezing Cardiovascular: no chest pain, no palpitations, no syncope and no edema Gastrointestinal: no abdominal pain, no nausea, no vomiting, no constipation and no diarrhea/loose stools Physical Exam Constitutional: WD/WN, vitals as above well nourished; no acute distress Eyes: PERRL, conjunctivae normal, anicteric sclerae ENMT: external ear and nose normal, oropharynx normal (dry oral membranes) Neck: trachea midline, no thyromegaly Respiratory: normal respiratory effort Auscultation: + diminished lung sounds; no crackles and no wheezes Cardiovascular: RRR, no murmur, no edema Gastrointestinal (Abdomen): normal bowel sounds, soft, nontender, no hepatosplenomegaly Musculoskeletal: Head/Neck/Chest: normocephalic and head atraumatic Extremities: + abnormal strength (generalized weakness); no cyanosis, no clubbing and no petechiae Skin: no rashes, warm and dry Neurologic: patellar DTR's 2+ bilat, sensation intact and PERRL, EOMI, accommodation nl, no face palsy, no dysarthria Psychiatric: A+Ox3, euthymic affect Lymphatic: no cervical or axillary lymphadenopathy Results & Data Results & Data ([facility]) Vital Signs (Past 12 Hours) Vital Signs Temp Pulse Resp BP Pulse Ox 08/12/19 12:18 91 08/12/19 08:15 36.6 C 94 H 22 117/64 92 Medications Administered Current Inpatient Medications Acetaminophen (Tylenol) 650 mg PO Q4H PRN PRN Reason: pain/fever Stop: 09/08/19 11:00 Heparin Sodium (Porcine) (Heparin Sodium (Porcine)) 5,000 units SQ Q8 HUMA Stop: 09/08/19 13:59 Last Admin: 08/12/19 12:39 Dose: Not Given Documented by: Ceftriaxone Sodium 1,000 mg/ (Dextrose) 50 mls @ 100 mls/hr IV Q24H HUMA Stop: 08/16/19 11:00 Last Infusion: 08/12/19 12:40 Dose: Infused Documented by: Doxycycline Hyclate 100 mg/ (Dextrose) 110 mls @ 50 mls/hr IV Q12H HUMA Stop: 08/16/19 20:59 Last Admin: 08/12/19 12:28 Dose: 50 mls/hr Documented by: Ioversol (Optiray 320 125ml) 76 ml IV ONCE PRN PRN Reason: Interaction Checking Stop: 08/13/19 07:43 Last Admin: 08/09/19 07:44 Dose: 76 ml Documented by: Ondansetron HCl (Zofran) 4 mg IV Q6H PRN PRN Reason: Nausea Stop: 09/08/19 11:00 PG Care Time/CCT Total # of Minutes Spent Total Time Spent with Patient: Total time spent is greater than 50% in coordinat ion of care (as documented) at patient's floor/unit and/or counseling patient: Coding Level of Care Code 26725 Subseq Hosp Care Lvl 3 Diagnoses COVID-19 virus infection U07.1 Bilateral pneumonia J18.9 Acute respiratory failure with hypoxia J96.01 Dehydration E86.0 Weakness R53.1 Chronic kidney disease, stage 3 N18.3 Type 2 diabetes mellitus without complication E11.9 CAD (coronary artery disease) I25.10 Dyslipidemia E78.5
[2019-08-13] MEDS: HEPARIN SOD 5,000 UNIT/0.5 ML VIAL SQ SCH (04:23)
[2019-08-13 07:10] LABS: Hematocrit (blood only) 31.8 % (42-52); Hemoglobin 10.7 g/dL (14.0-18.0); Mean Corpuscular Hemoglobin 31.8 pg (25-34); Mean Corpuscular Hgb Conc 33.6 g/dL (32-36); Mean Corpuscular Volume 94.4 fL (80-100); Platelet Count 167 K/uL (130-400); RDW Standard Deviation 44.8 fL (36.4-46.3); Red Blood Count 3.37 M/uL (4.7-6.1); White Blood Count 9.38 K/uL (4.8-10.8)
[2019-08-13 07:33] LABS: Albumin Level 1.8 gm/dl (3.4-5.0); BUN Creatinine Ratio 26.3 (10-20); Bilirubin Direct 0.2 mg/dl (0-0.2); Calcium 8.8 mg/dl (8.5-10.1); Creatinine Clr Calc Pharmacy 38.2 ml/min; Est GFR (African American) 65.7; Est GFR (Non-African American) 56.7; Potassium 4.2 mmol/L (3.5-5.1)
[2019-08-13 07:36] LABS: Basophils # (auto) 0.02 K/uL (0-0.2); Basophils % (auto) 0.2 %; Bilirubin,Total 0.6 mg/dl (0.2-1); Eosinophils # (auto) 0.08 K/uL (0-0.5); Eosinophils % (auto) 0.9 %; Immature Granulocytes # (auto) 0.06 K/uL (0.00-0.02); Immature Granulocytes % (auto) 0.6 %; Lymphocytes # (auto) 1.06 K/uL (1.2-3.4); Lymphocytes % (auto) 11.3 %; Monocytes # (auto) 0.54 K/uL (0.11-0.59); Monocytes % (auto) 5.8 %; Neutrophils # (auto) 7.62 K/uL (1.4-6.5); Neutrophils % (auto) 81.2 %; Total Protein 6.3 gm/dl (6.4-8.2)
--- NOTE | 2019-08-13 11:38 | Hospitalist Progress Note ---
Date of Service August 13, 2019 Assessment & Plan (1) COVID-19 virus infection: positive PCR test, results back on 08/10 notified [place] dept of [place], notified patient and his son over the phone continue negative pressure room and airborne/contact precautions Still requiring 11L but no distress, had to increase to 15L today after minimal movement to keep POxat 92% gets very dyspneic if he tries to move at all Afebrile, renal function intact, LDH elevated, lymphopenia -continue supportive care--> son Konstantin asked about using Plaquenil--> I will discuss with the Pediatric Registered Nurse to see if he would benefit from this. (2) Bilateral pneumonia: CT chest with bilateral ground glass opacities suggestive of inflammatory/infectious changes influenza negative, biofire negative positive for COVID 19 infection, place in airborne precautions, negative pressure room no further fluids as want to keep lungs dry stopped Rocephin and Doxycycline today, no evidence of bacterial infection (3) Acute respiratory failure with hypoxia: due to pneumonia, COVID 19, underlying COPD if his respiratory status declines he would not want to be intubated discussed this with him twice as well as his son over the phone, his son agrees with this Continues on 11L-15L via mask but not in distress hopeful that he will plateau and then slowly improve will likely take the next week to recover -add on Albuterol MDI 2 puffs q4h -consider prone to sleep but RN does not think pt is physically able to do this on his own as he is very weak (4) Dehydration: NSS at 80cc/hr initially stopped fluids 08/09 as we do not want to over hydrate his PO intake is improving, making clear urine via carbajal although lower today--> encourage po intake (5) Weakness: was at [facility] recently for generalized weakness--> was likely due to his COVID will hold on PT/OT since we need to preserve PPE certainly he will need rehab after hospitalization getting him to a facility will be extremely difficult given his COVID 19 status will need to discuss with infection control, case management any process we need to complete to prove he is not contagious would anticipate a week at minimum if we go by 14 days from symptom onset then it would be 08/22 as he was admitted on 08/08 with hypoxia (6) Chronic kidney disease, stage 3: Cr is at baseline 08/12, electrolytes stable Will not check daily labs to conserve PPE and exposure, labs have been stable (7) Type 2 diabetes mellitus without complication: HgbA1C 6.3% in 04/2019, well controlled and not on meds at home -no need for accuchecks or SSI here (8) CAD (coronary artery disease): History of 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 Subsequent deployment of bare-metal stent in proximal LAD. 3.5 x 15 mm stent no chest pain or angina here -has not been getting ASA or statin from home-will continue to hold for now (9) Dyslipidemia: holding statin from home (10) DVT prophylaxis: change heparin SQ to Lovenox once daily to avoid three injections daily Dispo-continued stay for severe hypoxic resp failure Discussed guarded prognosis with son Konstantin on phone DNR/DNI Admission and Anticipated Discharge Date Admission Date: August 09, 2019 Anticipated date of discharge: 08/20/19 Subjective Pt denies feeling SOB but is requiring 11L O2 by facemask. Is coughing a lot. Denies chest pain, no nausea. Has not had a BM in several days. Is eating. Later in the day, RN reported after turning him and repositioning, his sat was 80% on 11L and it took a while to get him back to 92% with 15L Oxymask. I discussed his care with his son Konstantin on the phone as his other son is now also admitted to the hospital with COVID. Review of Systems Review of Systems: All systems reviewed & are unremarkable except as noted in HPI & below Physical Exam Constitutional: WD/WN, vitals as above no acute distress Eyes: + anicteric sclerae ENMT: Ears: no hearing impairment Neck: trachea midline, no thyromegaly Respiratory: normal respiratory effort and + cough Auscultation: + diminished lung sounds (throughout) and + crackles (mild, at bases); no rhonchi and no wheezes Cardiovascular: RRR, no murmur, no edema Chest (Breasts): Chest: normal inspection of chest Gastrointestinal (Abdomen): normal bowel sounds, soft, nontender, no hepatosplenomegaly Musculoskeletal: Extremities: extremities normal to inspection; no cyanosis and no clubbing Skin: no rashes, warm and dry Neurologic: moves all extremities and awake; no focal motor deficits Psychiatric: Orientation: alert, oriented to person, oriented to place, oriented to time and cooperative Genitourinary: Carbajal in place draining clear yellow urine Lymphatic: no lymphedema Results & Data Results & Data ([facility]) Vital Signs (Past 12 Hours) Vital Signs Temp Pulse Pulse Resp BP Pulse Ox 08/13/19 08:34 37.1 C 78 20 115/66 92 08/12/19 23:50 37.1 C 89 20 122/60 92 Laboratory Results 08/13/19 08/13/19 08/13/19 Range/Units 06:52 06:52 06:52 WBC 9.38 (4.8-10.8) K/uL RBC 3.37 L (4.7-6.1) M/uL Hgb 10.7 L (14.0-18.0) g/dL Hct 31.8 L (42-52) % MCV 94.4 (80-100) fL MCH 31.8 (25-34) pg MCHC 33.6 (32-36) g/dL RDW Std Deviation 44.8 (36.4-46.3) fL RDW Coeff of Shira 13.0 (11.5-14.5) % Plt Count 167 (130-400) K/uL MPV 9.0 (7.4-10.4) fL Immature Gran % (Auto) 0.6 % Neut % (Auto) 81.2 % Lymph % (Auto) 11.3 % [place] % (Auto) 5.8 % Eos % (Auto) 0.9 % Baso % (Auto) 0.2 % Immature Gran # (Auto) 0.06 H (0.00-0.02) K/uL Neut # (Auto) 7.62 H (1.4-6.5) K/uL Lymph # (Auto) 1.06 L (1.2-3.4) K/uL [place] # (Auto) 0.54 (0.11-0.59) K/uL Eos # (Auto) 0.08 (0-0.5) K/uL Baso # (Auto) 0.02 (0-0.2) K/uL Sodium 138 (136-145) mmol/L Potassium 4.2 (3.5-5.1) mmol/L Chloride 110 H (98-107) mmol/L Carbon Dioxide 22 (21-32) mmol/L Anion Gap 6.0 (3-11) BUN 30 H (7-18) mg/dl Creatinine 1.14 (0.6-1.4) mg/dl Est Cr Clr Drug Dosing 38.2 ml/min Est GFR ( Amer) 65.7 Est GFR (Non-Af Amer) 56.7 BUN/Creatinine Ratio 26.3 H (10-20) Glucose 110 H (70-99) mg/dl Calcium 8.8 (8.5-10.1) mg/dl Total Bilirubin 0.6 (0.2-1) mg/dl Direct Bilirubin 0.2 (0-0.2) mg/dl AST 145 H (15-37) U/L ALT 83 H (12-78) U/L Alkaline Phosphatase 94 (45-117) U/L Lactate Dehydrogenase 423 H (87-241) U/L Total Protein 6.3 L (6.4-8.2) gm/dl Albumin 1.8 L (3.4-5.0) gm/dl PG Care Time/CCT Total # of Minutes Spent Total Time Spent with Patient: Total time spent is greater than 50% in coordination of care (as documented) at patient's floor/unit and/or counseling patient: Coding Level of Care Code 42601 Subseq Hosp Care Lvl 2 Diagnoses COVID-19 virus infection U07.1 Bilateral pneumonia J18.9 Acute respiratory failure with hypoxia J96.01 Dehydration E86.0 Weakness R53.1 Chronic kidney disease, stage 3 N18.3 Type 2 diabetes mellitus without complication E11.9 CAD (coronary artery disease) I25.10 Dyslipidemia E78.5 DVT prophylaxis Z29.9
[2019-08-13] MEDS: ALBUTEROL HFA 8 GM INHALER INH SCH ×2 (17:16→21:04)
[2019-08-13] MEDS ORDERED: AZITHROMYCIN 250 MG TAB PO SCH (18:30)
[2019-08-13] MEDS: HYDROXYCHLOROQUINE SULFATE 200 MG TAB PO SCH (21:14)
[2019-08-13] MEDS: ENOXAPARIN INJ 40 MG/0.4 ML SYR SQ SCH (21:15)
[2019-08-13] MEDS: DOCUSATE SODIUM 100 MG CAP PO SCH (21:15)
[2019-08-14] MEDS: ALBUTEROL HFA 8 GM INHALER INH SCH ×7 (00:43→20:33)
[2019-08-14] MEDS: HYDROXYCHLOROQUINE SULFATE 200 MG TAB PO SCH (09:00)
[2019-08-14] MEDS: DOCUSATE SODIUM 100 MG CAP PO SCH ×2 (09:03→20:34)
--- NOTE | 2019-08-14 14:19 | Hospitalist Progress Note ---
Date of Service August 14, 2019 Assessment & Plan (1) COVID-19 virus infection: With a positive PCR test, results back on 08/10 Notification was given to the [place] dept of health, notified patient and his son over the phone -Will continue negative pressure room and airborne/contact precautions Still requiring 15 L but no distress, goal is pulse ox 92-96%-discussed with nursing about weaning down today as he is feeling better -Started scheduled albuterol and will increase to 4 puffs every 4 hours -I discussed the case with clinical cytogeneticist Dr. Keys,-commenced treatment on 08/12 with hydroxychloroquine 200mg po bid x 5 days; azithro 500mg po once daily today and then 250mg po daily x 4 more days. ECG both at baseline and 24 hours after starting treatment with normal QTC Afebrile, renal function intact, LDH elevated, lymphopenia-we will check labs every 3 days to avoid exposure -Overall stable to slightly improved -He does not want to be intubated (2) Bilateral pneumonia: CT chest with bilateral ground glass opacities suggestive of inflammator y/infectious changes influenza negative, biofire negative positive for COVID 19 infection, place in airborne precautions, negative pressure room no further fluids as want to keep lungs dry stopped Rocephin and Doxycycline after several days as there was no evidence of bacterial infection (3) Acute respiratory failure with hypoxia: due to pneumonia, COVID 19, underlying COPD if his respiratory status declines he would not want to be intubated discussed this with him twice as well as his son over the phone, his son agrees with this Continues on 15L via mask but not in distress-wean down as able to hopeful that he will plateau and then slowly improve will likely take the next week to recover -Added on and will increase albuterol MDI to 4 puffs q4h -consider prone to sleep but RN does not think pt is physically able to do this on his own as he is very weak (4) Dehydration: NSS at 80cc/hr were given initially stopped fluids 4/3 as we do not want to over hydrate his PO intake is improving, making clear urine via carbajal --> encourage po intake (5) Weakness: was at [facility] recently for generalized weakness--> was likely due to his COVID will hold on PT/OT since we need to preserve PPE certainly he will need rehab after hospitalization getting him to a facility will be extremely difficult given his COVID 19 status will need to discuss with infection control, case management any process we need to complete to prove he is not contagious would anticipate a week at minimum if we go by 14 days from symptom onset then it would be 08/22 as he was admitted on 08/08 with hypoxia (6) Chronic kidney disease, stage 3: Cr is at baseline 08/12, electrolytes stable Will not check daily labs to conserve PPE and exposure, labs have been stable (7) Type 2 diabetes mellitus without complication: HgbA1C 6.3% in 04/2019, well controlled and not on meds at home -no need for accuchecks or SSI here (8) CAD (coronary artery disease): History of 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 Subsequent deployment of bare-metal stent in proximal LAD. 3.5 x 15 mm stent no chest pain or angina here -has not been getting ASA or statin from home-as per recent guidance by local production consultant-we will restart his statin and aspirin (9) Dyslipidemia: Was holding statin from home, but will restart today (10) DVT prophylaxis: Continue Lovenox once daily Dispo-continued stay for severe hypoxic resp failure Will call son Konstantin with update DNR/DNI Admission and Anticipated Discharge Date Admission Date: August 09, 2019 Anticipated date of discharge: 08/20/19 Subjective Patient reports feeling a little bit better today. Was still on 15 L nonrebreather when I saw him, but he took the mask off to drink water and dropped down to the mid 80s on room air. Less cough today, denies chest pain. He did move his bowels once yesterday. No nausea. He does not feel short of breath. His appetite has improved and he is now eating 25% of his meals as per nursing which is an improvement. Review of Systems Review of Systems: All systems reviewed & are unremarkable except as noted in HPI & below Physical Exam Constitutional: average body habitus; no acute distress Eyes: + anicteric sclerae ENMT: Ears: no hearing impairment Neck: trachea midline, no thyromegaly Respiratory: normal respiratory effort Auscultation: + diminished lung sounds (throughout) and + crackles (mild, at bases); no rhonchi and no wheezes Cardiovascular: RRR, no murmur, no edema Chest (Breasts): Chest: normal inspection of chest Gastrointestinal (Abdomen): normal bowel sounds, soft, nontender, no hepatosplenomegaly Musculoskeletal: Extremities: extremities normal to inspection; no cyanosis and no clubbing Skin: no rashes, warm and dry Neurologic: moves all extremities and awake; no focal motor deficits Psychiatric: Orientation: alert, oriented to person, oriented to place, oriented to time and cooperative Genitourinary: Carbajal catheter in place draining dark yellow urine Lymphatic: no lymphedema Results & Data Results & Data ([facility]) Vital Signs (Past 12 Hours) Vital Signs Temp Pulse Resp BP Pulse Ox 08/14/19 12:50 94 08/14/19 12:48 93 08/14/19 12:46 72 91 08/14/19 08:42 37 C 72 22 106/64 94 08/14/19 04:44 93 Laboratory Results No labs today ECG Additional Comments: ECG with normal sinus rhythm with PACs in a pattern of bigeminy, QTc 409 PG Care Time/CCT Total # of Minutes Spent Total Time Spent with Patient: Total time spent is greater than 50% in coordination of care (as documented) at patient's floor/unit and/or counseling patient: Coding Level of Care Code 08730 Subseq Hosp Care Lvl 3 Diagnoses COVID-19 virus infection U07.1 Bilateral pneumonia J18.9 Acute respiratory failure with hypoxia J96.01 Dehydration E86.0 Weakness R53.1 Chronic kidney disease, stage 3 N18.3 Type 2 diabetes mellitus without complication E11.9 CAD (coronary artery disease) I25.10 Dyslipidemia E78.5 DVT prophylaxis Z29.9
[2019-08-14] MEDS ORDERED: HYDROXYCHLOROQUINE SULFATE 200 MG TAB PO ONE (15:00)
[2019-08-14] MEDS: ASPIRIN 81 MG ECTAB PO SCH (17:20)
[2019-08-14] MEDS: AZITHROMYCIN 250 MG TAB PO SCH (17:29)
[2019-08-14] MEDS: ATORVASTATIN 40 MG TAB PO SCH (20:35)
[2019-08-14] MEDS ORDERED: HYDROXYCHLOROQUINE SULFATE 200 MG TAB PO SCH ×2 (21:00→22:00)
[2019-08-14] MEDS: ENOXAPARIN INJ 40 MG/0.4 ML SYR SQ SCH (22:06)
[2019-08-15] MEDS: ALBUTEROL HFA 8 GM INHALER INH SCH ×6 (00:45→20:54)
[2019-08-15] MEDS: ASPIRIN 81 MG ECTAB PO SCH (07:50)
[2019-08-15] MEDS: DOCUSATE SODIUM 100 MG CAP PO SCH ×2 (07:51→20:58)
[2019-08-15] MEDS: HYDROXYCHLOROQUINE SULFATE 200 MG TAB PO SCH ×2 (08:02→20:58)
[2019-08-15] MEDS ORDERED: HYDROXYCHLOROQUINE SULFATE 200 MG TAB PO SCH (09:00)
--- NOTE | 2019-08-15 14:40 | Electrocardiogram Report ---
Test Reason : Blood Pressure : / mmHG Vent. Rate : 067 BPM Atrial Rate : 067 BPM P-R Int : 180 ms QRS Dur : 072 ms QT Int : 388 ms P-R-T Axes : 076 027 050 degrees QTc Int : 409 ms Poor data quality, interpretation may be adversely affected Sinus rhythm with Premature atrial complexes in a pattern of bigeminy Nonspecific ST abnormality Abnormal ECG When compared with ECG of 09-AUG-2019 06:23, Premature atrial complexes are now Present Confirmed by Delvin Joseph ([id number] on 08/15/2019 2:40:25 PM Referred By: REFERRED SELF Confirmed By:Delvin Joseph
[2019-08-15] MEDS: AZITHROMYCIN 250 MG TAB PO SCH (17:20)
--- NOTE | 2019-08-15 19:10 | Hospitalist Progress Note ---
Date of Service August 15, 2019 Assessment & Plan (1) COVID-19 virus infection: With a positive PCR test, results back on 08/10 Notification was given to the [place] dept of health, notified patient and his son over the phone -Will continue negative pressure room and airborne/contact precautions Still requiring 13-15 L but no distress, goal is pulse ox 92-96%-discussed with nursing about weaning down O2 as able -Started scheduled albuterol 4 puffs every 4 hours -I discussed the case with shore man Dr. Keys,-commenced treatment on 08/12 with hydroxychloroquine 200mg po bid x 5 days; azithro 500mg po once daily x 1 day and then 250mg po daily x 4 more days. ECG both at baseline and 24 hours after starting treatment with normal QTc -some anecdotal evidence of Zinc being helpful in combination with Plaquenil--> will start Zinc 220mg po daily Afebrile, renal function intact, LDH elevated, lymphopenia-we will check labs every 3 days to avoid exposure -Overall stable to slightly improved -He does not want to be intubated (2) Bilateral pneumonia: CT chest with bilateral ground glass opacities suggestive of inflammatory/infectious changes influenza negative, biofire negative positive for COVID 19 infection, place in airborne precautions, negative pressure room no further fluids as want to keep lungs dry stopped Rocephin and Doxycycline after several days as there was no evidence of bacterial infection (3) Acute respiratory failure with hypoxia: due to pneumonia, COVID 19, underlying COPD if his respiratory status declines he would not want to be intubated discussed this with him twice as well as his son over the phone, his son agrees with this Continues on 13-15L via mask but not in distress-wean down as able to hopeful that he will plateau and then slowly improve will likely take the next week to recover -continue albuterol MDI to 4 puffs q4h -consider prone to sleep but RN does not think pt is physically able to do this on his own as he is very weak -is struggling to breath, would give low dose Roxanol 2.5mg po q1 hours prn (4) Dehydration: NSS at 80cc/hr were given initially stopped fluids 4/3 as we do not want to over hydrate his PO intake is improving, making clear urine via carbajal --> encourage po intake (5) Weakness: was at [facility] recently for generalized weakness--> was likely due to his COVID will hold on PT/OT since we need to preserve PPE certainly he will need rehab after hospitalization getting him to a facility will be extremely difficult given his COVID 19 status will need to discuss with infection control, case management any process we need to complete to prove he is not contagious would anticipate a week at minimum if we go by 14 days from symptom onset then it would be 08/22 as he was admitted on 08/08 with hypoxia (6) Chronic kidney disease, stage 3: Cr is at baseline 08/12, electrolytes stable Will not check daily labs to conserve PPE and exposure, labs have been stable (7) Type 2 diabetes mellitus without complication: HgbA1C 6.3% in 04/2019, well controlled and not on meds at home -no need for accuchecks or SSI here (8) CAD (coronary artery disease): History of 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 Subsequent deployment of bare-metal stent in proximal LAD. 3.5 x 15 mm stent no chest pain or angina here -has not been getting ASA or statin from home-as per recent guidance by local drink box mechanic-have now restarted his statin and aspirin (9) Dyslipidemia: Was holding statin from home, but have since restarted (10) DVT prophylaxis: Continue Lovenox once daily Dispo-continued stay for severe hypoxic resp failure DNR/DNI Admission and Anticipated Discharge Date Admission Date: August 09, 2019 Anticipated date of discharge: 08/20/19 Subjective Pt feeling tired today. Remains on 13-15L O2 via nonrebreather. Ate about 50% of his meals today so far. Denies SOB, no chest pain, minimal cough. RN reports he is able to roll over on his own when getting him cleaned up. No BM in 1-2 days. Making urine but low amounts. Review of Systems Review of Systems: All systems reviewed & are unremarkable except as noted in HPI & below Physical Exam Constitutional: WD/WN, vitals as above average body habitus; no acute distress Eyes: + anicteric sclerae ENMT: Ears: no hearing impairment Neck: trachea midline, no thyromegaly Respiratory: normal respiratory effort Auscultation: + diminished lung sounds (throughout) and + crackles (mild, at bases); no rhonchi and no wheezes Cardiovascular: RRR, no murmur, no edema Chest (Breasts): Chest: normal inspection of chest Gastrointestinal (Abdomen): normal bowel sounds, soft, nontender, no hepatosplenomegaly Musculoskeletal: Extremities: extremities normal to inspection; no cyanosis and no clubbing Skin: no rashes, warm and dry Neurologic: moves all extremities and awake; no focal motor deficits Psychiatric: Orientation: alert, oriented to person, oriented to place, oriented to time and cooperative Lymphatic: no lymphedema Results & Data Results & Data ([facility]) Vital Signs (Past 12 Hours) Vital Signs Temp Pulse Resp BP Pulse Ox 08/15/19 16:45 36.8 C 82 18 110/68 93 08/15/19 14:01 86 18 97 08/15/19 12:17 91 08/15/19 08:02 36.8 C 83 24 112/66 90 PG Care Time/CCT Total # of Minutes Spent Total Time Spent with Patient: Total time spent is greater than 50% in coordination of care (as documented) at patient's floor/unit and/or counseling patient: Coding Level of Care Code 52975 Subseq Hosp Care Lvl 2 Diagnoses COVID-19 virus infection U07.1 Bilateral pneumonia J18.9 Acute respiratory failure with hypoxia J96.01 Dehydration E86.0 Weakness R53.1 Chronic kidney disease, stage 3 N18.3 Type 2 diabetes mellitus without complication E11.9 CAD (coronary artery disease) I25.10 Dyslipidemia E78.5 DVT prophylaxis Z29.9
[2019-08-15] MEDS: ZINC SULFATE 220 MG CAPSULE PO SCH (20:54)
[2019-08-15] MEDS: ATORVASTATIN 40 MG TAB PO SCH (20:59)
[2019-08-15] MEDS: ENOXAPARIN INJ 40 MG/0.4 ML SYR SQ SCH (20:59)
[2019-08-16] MEDS: ALBUTEROL HFA 8 GM INHALER INH SCH ×6 (01:01→18:12)
[2019-08-16 06:54] LABS: Basophils # (auto) 0.01 K/uL (0-0.2); Basophils % (auto) 0.1 %; Eosinophils # (auto) 0.01 K/uL (0-0.5); Eosinophils % (auto) 0.1 %; Hematocrit (blood only) 32.1 % (42-52); Hemoglobin 10.4 g/dL (14.0-18.0); Immature Granulocytes # (auto) 0.07 K/uL (0.00-0.02); Immature Granulocytes % (auto) 0.7 %; Lymphocytes # (auto) 0.89 K/uL (1.2-3.4); Lymphocytes % (auto) 8.7 %; Mean Corpuscular Hemoglobin 30.8 pg (25-34); Mean Corpuscular Hgb Conc 32.4 g/dL (32-36); Mean Platelet Volume 8.9 fL (7.4-10.4); Monocytes # (auto) 0.83 K/uL (0.11-0.59); Monocytes % (auto) 8.1 %; Neutrophils # (auto) 8.47 K/uL (1.4-6.5); Neutrophils % (auto) 82.3 %; Platelet Count 198 K/uL (130-400); RDW Coefficient of Variation 13.2 % (11.5-14.5); RDW Standard Deviation 45.7 fL (36.4-46.3); Red Blood Count 3.38 M/uL (4.7-6.1); White Blood Count 10.28 K/uL (4.8-10.8)
[2019-08-16 07:25] LABS: Albumin Level 1.7 gm/dl (3.4-5.0); BUN Creatinine Ratio 31.8 (10-20); Calcium 9.3 mg/dl (8.5-10.1); Est GFR (African American) 53.1; Est GFR (Non-African American) 45.8; Magnesium 2.7 mg/dl (1.8-2.4); Potassium 4.1 mmol/L (3.5-5.1)
[2019-08-16 07:28] LABS: Albumin Globulin Ratio 0.3 (0.9-2); Bilirubin,Total 0.5 mg/dl (0.2-1); Globulin 5.1 gm/dl (2.5-4.0); Phosphorus 3.7 mg/dl (2.5-4.9); Total Protein 6.8 gm/dl (6.4-8.2)
[2019-08-16] MEDS: ASPIRIN 81 MG ECTAB PO SCH (08:44)
[2019-08-16] MEDS: DOCUSATE SODIUM 100 MG CAP PO SCH ×2 (08:47→20:48)
[2019-08-16] MEDS: HYDROXYCHLOROQUINE SULFATE 200 MG TAB PO SCH ×2 (08:50→20:48)
[2019-08-16] MEDS: ZINC SULFATE 220 MG CAPSULE PO SCH (12:57)
--- NOTE | 2019-08-16 17:35 | Hospitalist Progress Note ---
Date of Service August 16, 2019 Assessment & Plan (1) COVID-19 virus infection: With a positive PCR test, results back on 08/10 Notification was given to the [place] dept of health, notified patient and his son over the phone -Will continue negative pressure room and airborne/contact precautions Still requiring 13-15 L but no distress, goal is pulse ox 92-96%-discussed with nursing about weaning down O2 as able -Continue scheduled albuterol but decrease to 2 puffs every 6 hours -I discussed the case with lead business analyst Dr. Keys,-commenced treatment on 08/12 with hydroxychloroquine 200mg po bid x 5 days; azithro 500mg po once daily x 1 day and then 250mg po daily x 4 more days. ECG both at baseline and 24 hours after starting treatment with normal QTc at 409 -some anecdotal evidence of Zinc being helpful in combination with Plaquenil--> started zinc 220mg po daily on 08/14 Continues to be afebrile, renal function remains intact, LDH elevated but improved from previous, AST down to 73 which is improved from previous, lymphopenia-we will check labs every 3 days to avoid exposure -Overall stable to slightly improved -He does not want to be intubated (2) Bilateral pneumonia: CT chest with bilateral ground glass opacities suggestive of inflamm atory/infectious changes influenza negative, biofire negative positive for COVID 19 infection, place in airborne precautions, negative pressure room no further fluids as want to keep lungs dry stopped Rocephin and Doxycycline after several days as there was no evidence of bacterial infection No need for repeated chest x-rays unless condition declines (3) Acute respiratory failure with hypoxia: due to pneumonia, COVID 19, underlying COPD if his respiratory status declines he would not want to be intubated discussed this with him twice as well as his son over the phone, his son agrees with this Continues on 13-15L via mask but not in distress-wean down as able to hopeful that he will plateau and then slowly improve will likely take the next week to recover -continue albuterol MDI -Attempted prone position and quickly desaturated to the 60s-will not tolerate -if struggling to breath or declines, would start low dose Roxanol 2.5mg po q1 hours prn (4) Dehydration: Now resolved NSS at 80cc/hr were given initially stopped fluids 08/09 as we do not want to over hydrate his PO intake is improving, making clear urine via carbajal --> encourage po intake (5) Weakness: was at [facility] recently for generalized weakness--> was likely due to his COVID will hold on PT/OT since we need to preserve PPE certainly he will need rehab after hospitalization getting him to a facility will be extremely difficult given his COVID 19 status will need to discuss with infection control, case management any process we need to complete to prove he is not contagious would anticipate a week at minimum if we go by 14 days from symptom onset then it would be 08/22 as he was admitted on 08/08 with hypoxia (6) Chronic kidney disease, stage 3: Cr is at baseline at 1.36, electrolytes stable Will not check daily labs to conserve PPE and exposure, labs have been stable to improved -Avoid nephrotoxins -renally dose meds when appropriate (7) Type 2 diabetes mellitus without complication: HgbA1C 6.3% in 04/2019, well controlled and not on meds at home -no need for accuchecks or SSI here (8) CAD (coronary artery disease): History of 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 Subsequent deployment of bare-metal stent in proximal LAD. 3.5 x 15 mm stent no chest pain or angina here -Is now back on ASA and statin from home (9) Dyslipidemia: Continue statin (10) DVT prophylaxis: Continue Lovenox once daily Dispo-continued stay for severe hypoxic resp failure DNR/DNI Admission and Anticipated Discharge Date Admission Date: August 09, 2019 Anticipated date of discharge: 08/20/19 Subjective Patient reports feeling a little better than yesterday but about the same overall. Still requiring 15 L. Still coughing at times. Very weak. Nurse attempted to put him in prone position and he dropped into the 60s on his pulse ox that he was placed on his back again. Appetite is low. Review of Systems Review of Systems: All systems reviewed & are unremarkable except as noted in HPI & below Physical Exam Constitutional: WD/WN, vitals as above average body habitus; no acute distress Eyes: + anicteric sclerae ENMT: Ears: no hearing impairment Neck: trachea midline, no thyromegaly Respiratory: normal respiratory effort Auscultation: + diminished lung sounds (throughout) and + crackles (mild, at bases); no rhonchi and no wheezes Cardiovascular: RRR, no murmur, no edema Chest (Breasts): Chest: normal inspection of chest Gastrointestinal (Abdomen): normal bowel sounds, soft, nontender, no hepatosplenomegaly Musculoskeletal: Extremities: extremities normal to inspection; no cyanosis and no clubbing Skin: no rashes, warm and dry Neurologic: moves all extremities and awake; no focal motor deficits Psychiatric: Orientation: alert and cooperative Lymphatic: no lymphedema Results & Data Results & Data ([facility]) Vital Signs (Past 12 Hours) Vital Signs Temp Pulse Resp BP Pulse Ox 08/16/19 14:23 36.6 C 89 16 113/69 90 08/16/19 12:45 87 L 08/16/19 12:44 97 08/16/19 08:28 36.6 C 82 16 101/63 93 Laboratory Results 08/16/19 08/16/19 08/16/19 Range/Units 06:39 06:39 06:39 WBC 10.28 (4.8-10.8) K/uL RBC 3.38 L (4.7-6.1) M/uL Hgb 10.4 L (14.0-18.0) g/dL Hct 32.1 L (42-52) % MCV 95.0 (80-100) fL MCH 30.8 (25-34) pg MCHC 32.4 (32-36) g/dL RDW Std Deviation 45.7 (36.4-46.3) fL RDW Coeff of Shira 13.2 (11.5-14.5) % Plt Count 198 (130-400) K/uL MPV 8.9 (7.4-10.4) fL Immature Gran % (Auto) 0.7 % Neut % (Auto) 82.3 % Lymph % (Auto) 8.7 % [place] % (Auto) 8.1 % Eos % (Auto) 0.1 % Baso % (Auto) 0.1 % Immature Gran # (Auto) 0.07 H (0.00-0.02) K/uL Neut # (Auto) 8.47 H (1.4-6.5) K/uL Lymph # (Auto) 0.89 L (1.2-3.4) K/uL [place] # (Auto) 0.83 H (0.11-0.59) K/uL Eos # (Auto) 0.01 (0-0.5) K/uL Baso # (Auto) 0.01 (0-0.2) K/uL Sodium 140 (136-145) mmol/L Potassium 4.1 (3.5-5.1) mmol/L Chloride 110 H (98-107) mmol/L Carbon Dioxide 24 (21-32) mmol/L Anion Gap 6.0 (3-11) BUN 43 H (7-18) mg/dl Creatinine 1.36 (0.6-1.4) mg/dl Est Cr Clr Drug Dosing 32.0 ml/min Est GFR ( Amer) 53.1 Est GFR (Non-Af Amer) 45.8 BUN/Creatinine Ratio 31.8 H (10-20) Glucose 108 H (70-99) mg/dl Calcium 9.3 (8.5-10.1) mg/dl Phosphorus 3.7 (2.5-4.9) mg/dl Magnesium 2.7 H (1.8-2.4) mg/dl Total Bilirubin 0.5 (0.2-1) mg/dl AST 73 H (15-37) U/L ALT 49 (12-78) U/L Alkaline Phosphatase 99 (45-117) U/L Lactate Dehydrogenase 355 H (87-241) U/L Total Creatine Kinase 49 (39-308) U/L Total Protein 6.8 (6.4-8.2) gm/dl Albumin 1.7 L (3.4-5.0) gm/dl Globulin 5.1 H (2.5-4.0) gm/dl Albumin/Globulin Ratio 0.3 L (0.9-2) PG Care Time/CCT Total # of Minutes Spent Total Time Spent with Patient: Total time spent is greater than 50% in coordination of care (as documented) at patient's floor/unit and/or counseling patient: Coding Level of Care Code 78833 Subseq Hosp Care Lvl 2 Diagnoses COVID-19 virus infection U07.1 Bilateral pneumonia J18.9 Acute respiratory failure with hypoxia J96.01 Dehydration E86.0 Weakness R53.1 Chronic kidney disease, stage 3 N18.3 Type 2 diabetes mellitus without complication E11.9 CAD (coronary artery disease) I25.10 Dyslipidemia E78.5 DVT prophylaxis Z29.9
[2019-08-16] MEDS: AZITHROMYCIN 250 MG TAB PO SCH (17:50)
[2019-08-16] MEDS: ATORVASTATIN 40 MG TAB PO SCH (20:48)
[2019-08-16] MEDS: ENOXAPARIN INJ 40 MG/0.4 ML SYR SQ SCH (20:49)
[2019-08-17] MEDS: ALBUTEROL HFA 8 GM INHALER INH SCH ×4 (00:50→16:46)
[2019-08-17] MEDS: ASPIRIN 81 MG ECTAB PO SCH (09:17)
[2019-08-17] MEDS: DOCUSATE SODIUM 100 MG CAP PO SCH ×2 (09:17→19:59)
[2019-08-17] MEDS: HYDROXYCHLOROQUINE SULFATE 200 MG TAB PO SCH ×2 (09:20→20:11)
[2019-08-17] MEDS: ZINC SULFATE 220 MG CAPSULE PO SCH (12:39)
[2019-08-17] MEDS ORDERED: MoRPHine SULFATE 2 MG/ML CARP IV PRN (14:45)
[2019-08-17] MEDS: AZITHROMYCIN 250 MG TAB PO SCH (16:46)
--- NOTE | 2019-08-17 17:29 | Hospitalist Progress Note ---
Date of Service August 17, 2019 Assessment & Plan (1) COVID-19 virus infection: With a positive PCR test, results back on 08/10 Notification was given to the [place] dept of health, notified patient and his son over the phone -Will continue negative pressure room and airborne/contact precautions Still requiring 15 L O2 via NRB, and has significant hypoxia with minimal exertion to the low 80s -continue to wean down O2 as able to keep POx >88%-96% -Continue scheduled albuterol 2 puffs every 6 hours -I discussed the case with human resources office assistant Dr. Kesy,-commenced treatment on 08/12 with hydroxychloroquine 200mg po bid x 5 days; azithro 500mg po once daily x 1 day and then 250mg po daily x 4 more days-today is the last day of azithro and tomorrow last day of Plaquenil ECG both at baseline and 24 hours after starting treatment with normal QTc at 409 -some anecdotal evidence of Zinc being helpful in combination with Plaquenil--> started zinc 220mg po daily on 08/14 Continues to be afebrile, renal function remains intact, LDH elevated but improved from previous, AST down to 73 which is improved from previous, lymphopenia-we will check labs every 3 days to avoid exposure -Overall stable but had prolonged episode of hypoxia on 08/16 -consider HFNC no greater than 30L/min if not oxygenating well on 15L NRB -He does not want to be intubated -added morphine IV prn SOB (2) Bilateral pneumonia: CT chest with bilateral ground glass opacities suggestive of inflammatory/infectious changes influenza negative, biofire negative positive for COVID 19 infection, place in airborne precautions, negative pressure room no further fluids as want to keep lungs dry -remains afebrile for a week now, no leukocytosis -stopped Rocephin and Doxycycline after several days as there was no evidence of bacterial infection No need for repeated chest x-rays unless condition declines (3) Acute respiratory failure with hypoxia: due to pneumonia, COVID 19, underlying COPD if his respiratory status declines he would not want to be intubated -Attempted prone position and quickly desaturated to the 60s-will not tolerate -added IS today to help with any possible atelectasis Plan otherwise as above (4) Dehydration: Now resolved NSS at 80cc/hr were given initially stopped fluids 08/09 as we do not want to over hydrate his PO intake is improving, making clear urine via carbajal --> encourage po intake (5) Weakness: was at [facility] recently for generalized weakness--> was likely due to his COVID will hold on PT/OT since we need to preserve PPE certainly he will need rehab after hospitalization getting him to a facility will be extremely difficult given his COVID 19 status will need to discuss with infection control, case management any process we need to complete to prove he is not contagious would anticipate a week at minimum if we go by 14 days from symptom onset then it would be 08/22 as he was admitted on 08/08 with hypoxia -he cannot participate in any therapy or even get out of bed right now without significant desat. Although perhaps getting to a chair would help expand his lungs (6) Chronic kidney disease, stage 3: Cr is at baseline at 1.36, electrolytes stable Will not check daily labs to conserve PPE and exposure, labs have been stable to improved -Avoid nephrotoxins -renally dose meds when appropriate (7) Type 2 diabetes mellitus without complication: HgbA1C 6.3% in 04/2019, well controlled and not on meds at home -no need for accuchecks or SSI here (8) CAD (coronary artery disease): History of 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 Subsequent deployment of bare-metal stent in proximal LAD. 3.5 x 15 mm stent no chest pain or angina here -Is now back on ASA and statin from home (9) Dyslipidemia: Continue statin (10) DVT prophylaxis: Continue Lovenox once daily Dispo-continued stay for severe hypoxic resp failure DNR/DNI Admission and Anticipated Discharge Date Admission Date: August 09, 2019 Anticipated date of discharge: 08/20/19 Subjective Pt reports feeling ok. Does not feel SOB but remains on 15L NRB and POx 94%. I weaned his O2 down to 14.5L and went to 91%. Is eating ice cream today but not much else. Later in the afternoon, RN messaged me from inside the room that after he was trying to reposition himself, POx dropped to low 80s and was not coming back up very quickly. He was given albuterol inhaler and eventually he came back up to POx 90% after about 20 min. He was also very SOB with that episode but declined morphine for comfort. Review of Systems Review of Systems: All systems reviewed & are unremarkable except as noted in HPI & below Physical Exam Constitutional: average body habitus; no acute distress Eyes: + anicteric sclerae Neck: trachea midline, no thyromegaly Respiratory: normal respiratory effort Auscultation: + diminished lung sounds (throughout) and + crackles (mild, at bases); no rhonchi and no wheezes Cardiovascular: RRR, no murmur, no edema Chest (Breasts): Chest: normal inspection of chest Gastrointestinal (Abdomen): normal bowel sounds, soft, nontender, no hepatosplenomegaly Musculoskeletal: Extremities: extremities normal to inspection; no cyanosis and no clubbing Skin: no rashes, warm and dry Neurologic: moves all extremities and awake; no focal motor deficits Psychiatric: Orientation: alert and cooperative Lymphatic: no lymphedema Results & Data Results & Data ([facility]) Vital Signs (Past 12 Hours) Vital Signs Temp Pulse Pulse Pulse Resp BP Pulse Ox 08/17/19 16:44 36.5 C 91 H 18 133/78 92 08/17/19 15:09 87 L 08/17/19 14:58 85 L 08/17/19 14:50 76 20 137/75 82 L 08/17/19 14:38 83 26 H 136/74 80 L 08/17/19 08:56 36.4 C L 75 16 123/73 91 PG Care Time/CCT Total # of Minutes Spent Total Time Spent with Patient: Total time spent is greater than 50% in coordination of care (as documented) at patient's floor/unit and/or counseling patient: Coding Level of Care Code 00376 Subseq Hosp Care Lvl 1 Diagnoses COVID-19 virus infection U07.1 Bilateral pneumonia J18.9 Acute respiratory failure with hypoxia J96.01 Dehydration E86.0 Weakness R53.1 Chronic kidney disease, stage 3 N18.3 Type 2 diabetes mellitus without complication E11.9 CAD (coronary artery disease) I25.10 Dyslipidemia E78.5 DVT prophylaxis Z29.9
[2019-08-17] MEDS: ATORVASTATIN 40 MG TAB PO SCH (19:59)
[2019-08-17] MEDS: ENOXAPARIN INJ 40 MG/0.4 ML SYR SQ SCH (19:59)
[2019-08-18] MEDS: ALBUTEROL HFA 8 GM INHALER INH SCH ×5 (01:04→23:58)
[2019-08-18] MEDS: HYDROXYCHLOROQUINE SULFATE 200 MG TAB PO SCH ×2 (10:36→19:53)
[2019-08-18] MEDS: DOCUSATE SODIUM 100 MG CAP PO SCH ×2 (10:37→19:51)
[2019-08-18] MEDS: ASPIRIN 81 MG ECTAB PO SCH (10:37)
[2019-08-18] MEDS: MoRPHine SULFATE 2 MG/ML CARP IV PRN ×2 (13:07→16:28)
[2019-08-18] MEDS: ZINC SULFATE 220 MG CAPSULE PO SCH (13:08)
[2019-08-18] MEDS: methylPREDNISolone 60 MG in SYRINGE 0 ML IV SCH ×2 (13:08→23:58)
--- NOTE | 2019-08-18 16:53 | Hospitalist Progress Note ---
Date of Service August 18, 2019 Assessment & Plan (1) COVID-19 virus infection: With a positive PCR test, results back on 08/10 Notification was given to the [place] dept of health, notified patient and his son over the phone -Will continue negative pressure room and airborne/contact precautions Worsening since 08/16 with lower oxygenation on maximum amount of FiO2 after being on 11-15L NRB or Oxymask for 7 days--> initially 70s on 15 L O2 via NRB on 08/17, and now on HFNC 30L at 100% FiO2 and POx 80% -continue HFNC for now but approaching end of life -will add on IV steroids to see if gives any benefit with oxygenation given underlying emphysema -will give lasix IV x 1 in case of pulm edema component -Continue scheduled albuterol 2 puffs every 6 hours if can participate -give IV morphine prn breathlessness or tachypnea, IV ativan prn agitation both for comfort as pt does not desire any further escalation of care or intubation -has now completed a 5 day course of Plaquenil and azithromycin, along with zinc; QTc remained normal Overall prognosis very poor--> discussed his care with his son Konstantin on the phone. I am not sure he will live through the night unfortunately. (2) Bilateral pneumonia: CT chest with bilateral ground glass opacities suggestive of inflammatory/infectious changes influenza negative, biofire negative positive for COVID 19 infection, placed in airborne precautions, negative pressure room -no further fluids as want to keep lungs dry -giving IV lasix as above today x 1 -remains afebrile for a week now, no leukocytosis -stopped Rocephin and Doxycycline after several days as there was no evidence of bacterial infection No need for repeated chest x-rays (3) Acute respiratory failure with hypoxia: due to pneumonia, COVID 19, underlying COPD as above Remains a DNI -Attempted prone position and quickly desaturated to the 60s-will not tolerate -added IS to help with any possible atelectasis to no avail Plan otherwise as above (4) Dehydration: Now resolved NSS at 80cc/hr were given initially stopped fluids 4/3 as we do not want to over hydrate his PO intake is poor (5) Weakness: secondary to critical illness, worsening today Any minimal exertion causes him to have profound hypoxia (6) Chronic kidney disease, stage 3: Cr is at baseline at 1.36, electrolytes stable Will not check daily labs to conserve PPE and exposure, labs have been stable to improved -Avoid nephrotoxins -renally dose meds when appropriate (7) Type 2 diabetes mellitus without complication: HgbA1C 6.3% in 04/2019, well controlled and not on meds at home -no need for accuchecks or SSI here (8) CAD (coronary artery disease): History of 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 Subsequent deployment of bare-metal stent in proximal LAD. 3.5 x 15 mm stent no chest pain or angina here -continues on ASA and statin from home (9) Dyslipidemia: Continue statin (10) DVT prophylaxis: Continue Lovenox once daily Dispo-continued stay for severe hypoxic resp failure DNR/DNI Prognosis very grim currently. Approaching end of life as discussed with his son Konstantin on the phone today. Will continue O2, started IV steroids, IV lasix today but not likely to make much difference Son agrees with providing comfort as needed Admission and Anticipated Discharge Date Admission Date: August 09, 2019 Anticipated date of discharge: 08/20/19 Subjective Pt was having tachypnea and struggling to breathe earlier, POx down into the 70s with getting him cleaned up in the bed and then could not get him to recover up past 82% on 15L NRB. Respiratory was called and placed him on HFNC at 30L FiO2 100% and he has remained around 80%. He was accepting of morhpine to provide comfort and when I saw hmi he appeared comfortable, but did awake to verbal stimulus. He said "yes" and nodded his head when asked if he was comfortable and said "no" when asked if he needed anything. he was able to FaceTime with his son on the phone today. RN also reported that the pt coughed and sputtered a lot after taking a few sips of water earlier. He had a BM last night. Review of Systems Review of Systems: All systems reviewed & are unremarkable except as noted in HPI & below Physical Exam Constitutional: + lethargic; no acute distress Eyes: + anicteric sclerae ENMT: Ears: no hearing impairment Neck: trachea midline, no thyromegaly Respiratory: normal respiratory effort Auscultation: + diminished lung sounds (throughout); no rhonchi and no wheezes Cardiovascular: RRR, no murmur, no edema Chest (Breasts): Chest: normal inspection of chest Gastrointestinal (Abdomen): normal bowel sounds, soft, nontender, no hepatosplenomegaly Musculoskeletal: Extremities: extremities normal to inspection; no cyanosis and no clubbing Skin: no rashes, warm and dry Neurologic: no focal motor deficits Genitourinary: Calle catheter in place Lymphatic: no lymphedema Results & Data Results & Data ([facility]) Vital Signs (Past 12 Hours) Vital Signs Temp Pulse Pulse Resp BP BP Pulse Ox 08/18/19 16:46 74 20 82 L 08/18/19 14:40 36.7 C 69 24 115/69 86 L 08/18/19 11:27 80 12 84 L 08/18/19 07:49 98 H 26 H 135/63 86 L 08/18/19 05:00 36.5 C 88 20 90 PG Care Time/CCT Total # of Minutes Spent Total Time Spent with Patient: Total time spent is greater than 50% in coordination of care (as documented) at patient's floor/unit and/or counseling patient: Coding Level of Care Code 37321 Subseq Hosp Care Lvl 3 Diagnoses COVID-19 virus infection U07.1 Bilateral pneumonia J18.9 Acute respiratory failure with hypoxia J96.01 Dehydration E86.0 Weakness R53.1 Chronic kidney disease, stage 3 N18.3 Type 2 diabetes mellitus without complication E11.9 CAD (coronary artery disease) I25.10 Dyslipidemia E78.5 DVT prophylaxis Z29.9
[2019-08-18] MEDS ORDERED: FUROSEMIDE 20 MG in SYRINGE 0 ML IV ONE (17:09)
[2019-08-18] MEDS ORDERED: FUROSEMIDE 40 MG/4 ML VIAL IV ONE (17:15)
[2019-08-18] MEDS: LORazepam 0.5 MG/1 ML VIAL IV PRN (17:44)
[2019-08-18] MEDS: ATORVASTATIN 40 MG TAB PO SCH (19:52)
[2019-08-18] MEDS: ENOXAPARIN INJ 40 MG/0.4 ML SYR SQ SCH (19:53)
[2019-08-19] MEDS: ALBUTEROL HFA 8 GM INHALER INH SCH ×2 (04:55→12:44)
[2019-08-19] MEDS: MoRPHine SULFATE 2 MG/ML CARP IV PRN ×4 (05:33→23:56)
[2019-08-19] MEDS: LORazepam 0.5 MG/1 ML VIAL IV PRN ×2 (06:25→15:48)
[2019-08-19] MEDS: ASPIRIN 81 MG ECTAB PO SCH (08:19)
[2019-08-19] MEDS: DOCUSATE SODIUM 100 MG CAP PO SCH (08:19)
[2019-08-19] MEDS: methylPREDNISolone 60 MG in SYRINGE 0 ML IV SCH ×2 (12:44→20:41)
[2019-08-19] MEDS: ZINC SULFATE 220 MG CAPSULE PO SCH (12:44)
[2019-08-19] MEDS ORDERED: ALBUTEROL HFA 8 GM INHALER INH PRN (16:06)
--- NOTE | 2019-08-19 17:56 | Hospitalist Progress Note ---
Date of Service August 19, 2019 Assessment & Plan (1) COVID-19 virus infection: With a positive PCR test, results back on 08/10 Notification was given to the [place] dept of health, notified patient and his son over the phone Worsening since 08/16 with lower oxygenation on maximum amount of FiO2 after being on 11-15L NRB or Oxymask for 7 days--> initially 70s on 15 L O2 via NRB on 08/17, and then was tried on HFNC 30L at 100% FiO2 and POx remained around 80%. He was then switched back to 15 L nonrebreather facemask IV steroids were started on the morning of 08/17 and 1 dose of IV Lasix was given He has been given morphine and Ativan as needed for agitation and significant respiratory distress that he had during that time. Oxygenation is slightly improved today up to 90% when I saw him in the evening -Continue IV steroids for now although overall prognosis remains quite poor -Continue morphine but lower the dose to 1 mg every hour as needed for shortness of breath or tachypnea to see if his symptoms can be managed without excessive sedation -Change scheduled albuterol 2 puffs to as needed -Continue IV ativan prn agitation both for comfort as pt does not desire any further escalation of care or intubation -has now completed a 5 day course of Plaquenil and azithromycin, along with zi nc; QTc remained normal-all have been discontinued now -He is not able to swallow but can continue with ice chips and sips if wakes up enough to swallow (2) Bilateral pneumonia: CT chest with bilateral ground glass opacities suggestive of inflammatory/infectious changes influenza negative, biofire negative positive for COVID 19 infection, placed in airborne precautions, negative pressure room -no further fluids as want to keep lungs dry -Gave IV lasix x 1 on 08/17 -remains afebrile for over a week now, no leukocytosis -stopped Rocephin and Doxycycline after several days as there was no evidence of bacterial infection No need for repeated chest x-rays (3) Acute respiratory failure with hypoxia: due to pneumonia, COVID 19, underlying COPD as above Remains a DNI -Attempted prone position and quickly desaturated to the 60s-will not tolerate -added IS to help with any possible atelectasis to no avail Plan otherwise as above-now obtunded however oxygenation is improving (4) Weakness: secondary to critical illness, worsening today Any minimal exertion causes him to have profound hypoxia (5) Chronic kidney disease, stage 3: Cr is at baseline at 1.36, electrolytes stable -Avoid nephrotoxins -renally dose meds when appropriate -Given that he is approaching end-of-life, no need to check labs Follow urine output with Calle catheter (6) Type 2 diabetes mellitus without complication: HgbA1C 6.3% in 04/2019, well controlled and not on meds at home -no need for accuchecks or SSI here (7) CAD (coronary artery disease): History of 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 Subsequent deployment of bare-metal stent in proximal LAD. 3.5 x 15 mm stent no chest pain or angina here -continues on ASA and statin from home however he is unable to swallow currently-hold if cannot swallow as discussed with nursing (8) Dyslipidemia: Continue statin if can swallow as above (9) DVT prophylaxis: Continue Lovenox once daily Dispo-continued stay for severe hypoxic resp failure, however has deteriorated in the last 48 hours and will most likely pass away in the hospital DNR/DNI Will continue O2, IV steroids for now as oxygenation is slightly improved today although remains lethargic as above Son agrees with providing comfort as needed Admission and Anticipated Discharge Date Admission Date: August 09, 2019 Anticipated date of discharge: 08/20/19 Subjective Patient has remained hypoxic throughout the day and agitated at times as per nursing staff. When I saw him later in the day, he was obtunded and did not respond to verbal stimulus or gentle tactile stimulus. His pulse ox was at 80% when I walked in the room but he had pulled his mask down on his chin. When I replaced his nonrebreather mask in proper position, his pulse ox came up to 90- 91% and remained there. He has not eaten or drank anything in over 24 hours. Review of Systems Review of Systems: Unobtainable due to reduced consciousness Physical Exam Constitutional: + lethargic (Obtunded); no acute distress Neck: trachea midline, no thyromegaly Respiratory: normal respiratory effort Auscultation: + diminished lung sounds (throughout); no rhonchi and no wheezes Cardiovascular: RRR, no murmur, no edema Chest (Breasts): Chest: normal inspection of chest Gastrointestinal (Abdomen): normal bowel sounds, soft, nontender, no hep atosplenomegaly Musculoskeletal: Extremities: extremities normal to inspection; no cyanosis and no clubbing Skin: no rashes, warm and dry Genitourinary: Calle catheter in place Results & Data Results & Data ([facility]) Vital Signs (Past 12 Hours) Vital Signs Temp Pulse Resp BP Pulse Ox 08/19/19 16:59 102 H 24 131/90 83 L 08/19/19 08:19 35.5 C L 90 24 129/84 72 L Laboratory Results No labs PG Care Time/CCT Total # of Minutes Spent Total Time Spent with Patient: Total time spent is greater than 50% in coordination of care (as documented) at patient's floor/unit and/or counseling patient: Coding Level of Care Code 64259 Subseq Hosp Care Lvl 2 Diagnoses COVID-19 virus infection U07.1 Bilateral pneumonia J18.9 Acute respiratory failure with hypoxia J96.01 Weakness R53.1 Chronic kidney disease, stage 3 N18.3 Type 2 diabetes mellitus without complication E11.9 CAD (coronary artery disease) I25.10 Dyslipidemia E78.5 DVT prophylaxis Z29.9
[2019-08-19] MEDS: ENOXAPARIN INJ 40 MG/0.4 ML SYR SQ SCH (20:41)
[2019-08-19] MEDS: ATORVASTATIN 40 MG TAB PO SCH (20:42)
[2019-08-20] MEDS: MoRPHine SULFATE 2 MG/ML CARP IV PRN ×11 (03:26→22:23)
[2019-08-20] MEDS: ASPIRIN 81 MG ECTAB PO SCH (07:33)
[2019-08-20] MEDS: methylPREDNISolone 60 MG in SYRINGE 0 ML IV SCH (07:34)
--- NOTE | 2019-08-20 14:28 | Hospitalist Progress Note ---
Date of Service August 20, 2019 Assessment & Plan (1) COVID-19 virus infection: With a positive PCR test, results back on 08/10 Notification was given to the [place] dept of health, notified patient and his son over the phone Worsening since 08/16 with lower oxygenation on maximum amount of FiO2 after being on 11-15L NRB or Oxymask for 7 days--> initially 70s on 15 L O2 via NRB on 08/17, and then was tried on HFNC 30L at 100% FiO2 and POx remained around 80%. He was then switched back to 15 L nonrebreather facemask 08/19 with worsening saturations, 80% NRB 15L, requiring more sedation for distress and agitation discussed extensively with family, will make patient comfort measures only, anticipate him passing away soon morphine 2mg IV q30 minutes, Ativan PRN, will utilize drip if needed completed a 5 day course of Plaquenil and azithromycin, along with zinc (2) Bilateral pneumonia: CT chest with bilateral ground glass opacities suggestive of inflammatory/infectious changes influenza negative, biofire negative positive for COVID 19 infection, placed in airborne precautions, negative pressure room -remains afebrile for over a week now, no leukocytosis -stopped Rocephin and Doxycycline after several days as there was no evidence of bacterial infection this is terminal condition, change to comfort measures (3) Acute respiratory failure with hypoxia: due to pneumonia, COVID 19, underlying COPD as above Remains a DNI -Attempted prone position and quickly desaturated to the 60s-will not tolerate today he is 80% on 15L NRB, will change to comfort measures as this is terminal condition (4) Weakness: secondary to critical illness Any minimal exertion causes him to have profound hypoxia (5) Chronic kidney disease, stage 3: Cr is at baseline at 1.36, electrolytes stable Follow urine output with Calle catheter -- little to no urine output today, not drinking (6) Type 2 diabetes mellitus without complication: HgbA1C 6.3% in 04/2019, well controlled and not on meds at home -no need for accuchecks or SSI here (7) CAD (coronary artery disease): History of 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 Subsequent deployment of bare-metal stent in proximal LAD. 3.5 x 15 mm stent no chest pain or angina here stop aspirin and statin today (8) Dyslipidemia: stop statin (9) DVT prophylaxis: stop Lovenox Dispo- comfort measures Admission and Anticipated Discharge Date Admission Date: August 09, 2019 Anticipated date of discharge: 08/20/19 Subjective patient not responding today, obtunded tried sternal rub and verbal stimuli little to no urine out, not eating/drinking, won't take medications updated his son Konstantin over the phone, he asked to continue treatment for the time being RN called me later in the day, saturations dropping to 80% on NRB patient agitated once morphine wears off called son Konstantin again to discuss, he agreed to change to comfort measures only will stop all medications except Ativan, Morphine, Zofran order placed for comfort measures Review of Systems Review of Systems: Unobtainable due to cognitive status Physical Exam Constitutional: + ill appearing, + thin, + frail appearing and + lethargic ENMT: external ear and nose normal, oropharynx normal (dry oral membranes) Neck: trachea midline, no thyromegaly Respiratory: normal respiratory effort Auscultation: + diminished lung sounds; no crackles and no wheezes Cardiovascular: RRR, no murmur, no edema Gastrointestinal (Abdomen): Inspection/Auscultation: abdomen normal to inspection and + hypoactive bowel sounds; abdomen not distended Percussion/Palpation: abdomen soft; abdomen nontender Musculoskeletal: no cyanosis or clubbing, extremities motor strength 5/5 Head/Neck/Chest: normocephalic and head atraumatic Extremities: + abnormal strength (generalized weakness); no cyanosis, no clubbing and no petechiae Skin: + turgor decreased and + mottling (lower extremities, cool extremities) Neurologic: patellar DTR's 2+ bilat, sensation intact and PERRL, EOMI, accommodation nl, no face palsy, no dysarthria Psychiatric: A+Ox3, euthymic affect Lymphatic: no cervical or axillary lymphadenopathy Results & Data Results & Data ([facility]) Vital Signs (Past 12 Hours) Vital Signs Temp Pulse Resp BP BP Pulse Ox 08/20/19 14:00 35.9 C L 30 H 147/90 H 80 L 08/20/19 12:00 36.4 C L 28 H 148/90 H 91 08/20/19 10:00 144/93 H 89 L 08/20/19 09:18 36.7 C 08/20/19 09:00 140/91 90 08/20/19 08:00 24 148/94 H 89 L 08/20/19 04:04 36.3 C L 94 H 24 147/89 H 86 L Medications Administered Current Inpatient Medications Lorazepam (Ativan) 0.5 mg in 1 mls @ 1 mls/min IV Q4H PRN PRN Reason: Agitation Stop: 09/17/19 17:07 Last Admin: 08/19/19 15:48 Dose: 1 mls/min Documented by: Morphine Sulfate (Morphine Sulfate) 2 mg IV Q30M PRN PRN Reason: shortness of breath or pain Stop: 09/02/19 17:52 Ondansetron HCl (Zofran) 4 mg IV Q6H PRN PRN Reason: Nausea Stop: 09/08/19 11:00 PG Care Time/CCT Total # of Minutes Spent Total Time Spent: 45 Total Time Spent with Patient: Total time spent is greater than 50% in coordination of care (as documented) at patient's floor/unit and/or counseling patient: spoke at length twice with patient's son Konstantin about goals of care and prognosis Coding Level of Care Code 77046 Subseq Hosp Care Lvl 3 Diagnoses COVID-19 virus infection U07.1 Bilateral pneumonia J18.9 Acute respiratory failure with hypoxia J96.01 Weakness R53.1 Chronic kidney disease, stage 3 N18.3 Type 2 diabetes mellitus without complication E11.9 CAD (coronary artery disease) I25.10 Dyslipidemia E78.5 DVT prophylaxis Z29.9
[2019-08-20] MEDS: LORazepam 0.5 MG/1 ML VIAL IV PRN (14:44)
[2019-08-21] MEDS: MoRPHine SULFATE 2 MG/ML CARP IV PRN ×8 (02:48→23:29)
[2019-08-21] MEDS: ONDANSETRON INJ 2 MG/ML 2 ML VIAL IV PRN ×2 (07:26→17:13)
--- NOTE | 2019-08-21 12:40 | Hospitalist Progress Note ---
Date of Service August 21, 2019 Assessment & Plan Admission and Anticipated Discharge Date Admission Date: August 09, 2019I certify that the inpatient services were ordered in accordance with Medicare regulations governing the order. This includes certification that hospital inpatient services are reasonable and necessary and in the case of services not specified ) Results & Data Results & Data ([facility]) Vital Signs (Past 12 Hours) Vital Signs Pulse Pulse Resp BP Pulse Ox 08/21/19 08:00 113 H 24 145/90 H 68 L 08/21/19 04:19 101 H 70 L PG Care Time/CCT Total # of Minutes Spent Total Time Spent with Patient: Total time spent is greater than 50% in coordination of care (as documented) at patient's floor/unit and/or counseling patient: Coding
--- NOTE | 2019-08-21 13:14 | Hospitalist Progress Note ---
Date of Service August 21, 2019 Assessment & Plan (1) COVID-19 virus infection: With a positive PCR test, results back on 08/10. - Completed a 5 day course of Plaquenil and azithromycin, along with zinc. - Worsening respiratory status lead the family to move to comfort care - Continue morphine 2mg IV q30 minutes, Ativan PRN, will utilize drip if needed -> Presently appears very comfortable. (2) Bilateral pneumonia: CT chest with bilateral ground glass opacities suggestive of inflammatory/infectious changes. Positive for COVID 19 infection, placed in airborne precautions, negative pressure room. - As above (3) Acute respiratory failure with hypoxia: Due to COVID 19 & underlying COPD as above. Admission and Anticipated Discharge Date Admission Date: August 09, 2019 Subjective Unresponsive to verbal or physical stimuli. Review of Systems Review of Systems: Unobtainable due to cognitive status and Unobtainable due to reduced consciousness Physical Exam Constitutional: + acute distress and + lethargic Eyes: EOM intact bilaterally; no conjunctival abnormality ENMT: external ear and nose normal, oropharynx normal Neck: trachea midline, no thyromegaly normal visual inspection Respiratory: + respiratory distress and + labored breathing Cardiovascular: Rate/Rhythm: regular rhythm and + tachycardic Gastrointestinal (Abdomen): Inspection/Auscultation: abdomen normal to inspection; abdomen not distended Musculoskeletal: no cyanosis or clubbing, extremities motor strength 5/5 Skin: no rashes, warm and dry Neurologic: + does not move all extremities and + not awake Psychiatric: Orientation: + not alert, + not oriented to person and + uncooperative Results & Data Results & Data ([facility]) Vital Signs (Past 12 Hours) Vital Signs Pulse Pulse Resp BP Pulse Ox 08/21/19 08:00 113 H 24 145/90 H 68 L 08/21/19 04:19 101 H 70 L PG Care Time/CCT Total # of Minutes Spent Total Time Spent with Patient: Total time spent is greater than 50% in coordination of care (as documented) at patient's floor/unit and/or counseling patient: Coding Level of Care Code 36697 Subseq Hosp Care Lvl 2 Diagnoses COVID-19 virus infection U07.1 Bilateral pneumonia J18.9 Acute respiratory failure with hypoxia J96.01
[2019-08-22] MEDS: MoRPHine SULFATE 2 MG/ML CARP IV PRN ×7 (05:38→20:49)
--- NOTE | 2019-08-22 11:48 | Hospitalist Progress Note ---
Date of Service August 22, 2019 Assessment & Plan (1) COVID-19 virus infection: With a positive PCR test, results back on 08/10. - Completed a 5 day course of Plaquenil and azithromycin, along with zinc. - Worsening respiratory status led the family to move to comfort care on 08/19 - Continue morphine 2mg IV Q30 minutes, Ativan PRN, will utilize drip if needed -> Discussed with RN who feels he is comfortable. He has only neede 3 doses of morphine in the last 12 hours, so will defer drip at this time. (2) Bilateral pneumonia: CT chest with bilateral ground glass opacities suggestive of inflammatory/infectious changes. Positive for COVID 19 infection, placed in airborne precautions, negative pressure room. - As above (3) Acute respiratory failure with hypoxia: Due to COVID 19 & underlying COPD as above. Admission and Anticipated Discharge Date Admission Date: August 09, 2019 Subjective Obtunded. Review of Systems Review of Systems: Unobtainable due to reduced consciousness Physical Exam Constitutional: + acute distress and + lethargic Eyes: no conjunctival abnormality and + EOM not intact (No movement.) ENMT: external ear and nose normal, oropharynx normal Neck: trachea midline, no thyromegaly normal visual inspection Respiratory: + respiratory distress and + labored breathing; not tachypneic (Bradypnea) Cardiovascular: Rate/Rhythm: regular rhythm and + tachycardic Gastrointestinal (Abdomen): Inspection/Auscultation: abdomen normal to inspection; abdomen not distended Musculoskeletal: no cyanosis or clubbing, extremities motor strength 5/5 Skin: no rashes, warm and dry Neurologic: + does not move all extremities and + not awake Psychiatric: Orientation: + not alert, + not oriented to person and + uncooper ative PG Care Time/CCT Total # of Minutes Spent Total Time Spent with Patient: Total time spent is greater than 50% in coordination of care (as documented) at patient's floor/unit and/or counseling patient: Coding Level of Care Code 96463 Subseq Hosp Care Lvl 2 Diagnoses COVID-19 virus infection U07.1 Bilateral pneumonia J18.9 Acute respiratory failure with hypoxia J96.01
[2019-08-23] MEDS: MoRPHine SULFATE 2 MG/ML CARP IV PRN ×3 (03:31→08:45)
--- NOTE | 2019-08-23 11:18 | Death Pronouncement Note ---
Date of Service August 23, 2019 Pronouncement Note Admission Date Admission Date: August 09, 2019 Date and Time of Date of : 08/23/19 Time of : 09:35 PCOD Preliminary cause of : Pneumonia due to COVID-19 virus Contributing Factors (1) COVID-19 virus infection: (2) Bilateral pneumonia: (3) Acute respiratory failure with hypoxia: Hospital Course Hospital Course: Covid-19 causing pneumonia Additional Data Confirmation of : no pulse, no respirations, no heart sounds and pupils fixed and dilated Family: contacted Attending physician: Jasper Sanabria MD Was code activated?: No Autopsy requested?: No Advance directives: Yes Coding Level of Care Code D/C Day Management >30 mins Diagnoses COVID-19 virus infection U07.1 Bilateral pneumonia J18.9 Acute respiratory failure with hypoxia J96.01
--- NOTE | 2019-08-23 11:19 | Discharge Summary ---
Date of Service August 23, 2019 Admission HPI Per Admitting Provider 89 yo male from [facility] who was sent because he found to be hypoxic this morning in the mid 's on room air. The patient went to [facility] several days ago due to weakness. He was evaluated in the ED at that time and there was no obvious source of infection. He was accepted to [facility]. This morning he was hypoxic, felt short of breath, had a non-productive cough. He has not been eating well or drinking well the past few days. In the ED he was afebrile, he was 87% on room air. Influenza negative, biofire negative. CT of the chest showed bilateral ground glass opacities favoring inflamm atory/infectious etiology. The patient's son called into the ED while he was being evaluated to state that he had just received news that he tested positive for COVID 19. The patient lives with his son. I called the son to discuss his situation. He has been sick at home with fever, cough for the past 2-3 weeks. He had no travel and no known exposure history. 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 Since the patient has been living with a confirmed COVID case, testing for COVID was sent from the ED. He was admitted to negative pressure room. Discussed situation with patient and his son. The patient said that if he gets worse he would not want to be intubated. Principal Diagnosis Pneumonia from Covid-19 Discharge Exam Constitutional + acute distress and + lethargic Eyes no conjunctival abnormality and + EOM not intact (No movement.) ENMT external ear and nose normal, oropharynx normal Neck trachea midline, no thyromegaly normal visual inspection Respiratory + respiratory distress and + labored breathing; not tachypneic (Bradypnea) Cardiovascular Rate/Rhythm: regular rhythm and + tachycardic Gastrointestinal (Abdomen) Inspection/Auscultation: abdomen normal to inspection; abdomen not distended Musculoskeletal no cyanosis or clubbing, extremities motor strength 5/5 Skin no rashes, warm and dry Neurologic + does not move all extremities and + not awake Psychiatric Orientation: + not alert, + not oriented to person and + uncooperative Discharge Data Allergies Allergy/AdvReac Type Severity Reaction Status Date / Time No Known Drug Allergies Allergy Verified 08/04/19 10:35 Consultations 08/09/19 09:56 ED Decision to Admit Stat 04/02/20 11:01 Consult Case Management - Discharge Planning Routine Ordered Studies 08/09/19 07:21 CT angio chest PE protocol Stat Hospital Course (1) COVID-19 virus infection: due to pneumonia from Covid-19 infection. Time of : 9:35am (2) Bilateral pneumonia: CT chest with bilateral ground glass opacities suggestive of inflammato ry/infectious changes. Positive for COVID 19 infection, placed in airborne precautions, negative pressure room. - As above (3) Acute respiratory failure with hypoxia: Due to COVID 19 & underlying COPD as above. Total Time Total Time Spent Total Time Spent (In Minutes): 36 Discharge Plan Discharge Items Patient Disposition: Reason For Visit: PNEUMONIA Discharge Diagnosis: Covid-19 pneumonia Follow-up/Referrals: Luis Scott MD [Primary Care Provider] - Addtl Attending Provider Instructions: Admission Data Admit Date/Time: 08/09/19 09:08 Coding Level of Care Code D/C Day Management >30 mins Diagnoses COVID-19 virus infection U07.1 Bilateral pneumonia J18.9 Acute respiratory failure with hypoxia J96.01
== END 2019-08-23 09:35 | disposition expired | DRG 177 ==
LOC: ED 06:10 → SUATTDRO 09:08 → 3E 09:08 → 2E 08-17 20:12